=== PATIENT | female | born 1950 | race Caucasian/White ===

== ENCOUNTER 2018-09-20 12:00 | Emergency (ER) | payer OTHER ==
--- OUTSIDE RECORDS SUMMARY | 2018-09-20 12:02 | XMS REPORT ---
:1950 Author Organization [facility] Address [address] [place] [address] Care Team Providers Name Role Phone KENNETH WEBSTER Unavailable Unavailable ARMIN LOW ABA Unavailable Unavailable Problems This patient has no known problems. Allergies, Adverse Reactions, Alerts This patient has no known allergies or adverse reactions. Medications This patient has no known medications. Results Test Description Test Time Test Comments Text Results Atomic Results Result Comments MR, ABDOMEN, 2018-04-07 Referring: FINAL REPORT PATIENT ID: WITH 13:10:00 Orville Pickett [id number] TECHNIQUE: MRI of the Abdominal Vessels abdomen WITHOUT and WITH intravenous contrast. INDICATION: 67-year-old woman with liver masses. COMPARISON: Abdomen MRIs 06/10/2017 and 01/27/2017. FINDINGS: LOWER THORAX: Unchanged 1.2 cm cystic structure abutting the left atrium and right pulmonary veins. LIVER: No hepatic signal abnormality. Unchanged 2.2 cm cyst in segment ABDIAZIZ. Unchanged 1.5 cm progressively enhancing hemangioma in segment . 3.8 x 2.8 cm lesion in segment VII with areas of T1/T2 hypointense signal appears slightly decreased in size since 01/27/2017, when it measured 4.1 x 3.2 cm. This lesion continues to progressively enhance on postcontrast sequences. Persistent subcentimeter arterially enhancing focus in the hepatic dome with questionable corresponding T2 hyperintensity remains isointense to blood pool on subsequent postcontrast sequences, suggestive of a flash filling hemangioma.BILIARY: Prior cholecystectomy. No biliary ductal dilatation or filling defect.SPLEEN: No splenomegaly.PANCREAS: No focal masses or ductal dilatation. ADRENALS: No adrenal nodules.KIDNEYS/URETERS: No hydronephrosis or solid mass lesions. PERITONEUM/RETROPERITONEUM: No free fluid.LYMPH NODES: No lymphadenopathy.VESSELS: Unremarkable. GI TRACT: No distention or wall thickening. BONES AND SOFT TISSUES: Unremarkable. IMPRESSION:Slightly decreased size of the lesion in segment VII, suggestive of a benign lesion such as a sclerotic hemangioma. Unchanged hemangioma in segment and cyst in segment ABDIAZIZ. Unchanged cystic structure abutting the left atrium and right pulmonary veins, almost certainly a benign entity such as pericardial cyst. Signed: Santa Lee MDReport Verified Date/Time: 04/07/2018 13:10:38 Reading Location: [facility] C013Y CT Body Reading Room -CREATININE 2018-04-07 11:17:00 Test Item Value Reference Range Comments POC-CREATININE (BEAKER) (test 0.6 mg/dL 0.6-1.3 TESTED AT [facility] 2457 acix=3724) [facility] [address] POC-EGFR (BEAKER) (test 100 mL/min/1.73M2 qrqz=4206) MR, ABDOMEN, [id number] 14:38:00Referring: Dr. Orville Barkley Due April 2018 Reason for Exam:->liver lesions. Please re-evaluateFINAL REPORT MR of the abdomen dated June 04, 2017 COMPARISON: June 26, 2016 Comment: Multiplanar T1 and T2-weighted uterus of the abdomen, postcontrast axial and coronalT1-weighted images of the abdomen were obtained. Liver and spleen are normal in size. The margin of the liver is not irregular. No MR evidence of cirrhosis is present. A 1.0 x 1.7 cm hemangioma is seenin the segment 6 of the liver. A 1.2 x 2.2 cm cyst is seen in the segment 4A of the liver. A stable 2.4 x 3.4 cm heterogeneous appearing lesion is seen in the segment 7 of the liver. This lesion has heterogeneous signal intensity T1 and T2 weighted images with a normal peripheral postcontrast enhancement. Signal voids are seen in the peripheral of this lesion suggestive of calcifications. This lesionis compatible with patient's known history of sclerosing hemangioma. Gallbladder is surgically absent. No biliary dilatation is seen. The splenic, superior mesenteric, portal, and hepatic veins are patent. Main portal vein measures 1.2 cm in size. Pancreas and adrenals are unremarkable. Both kidneys are normal in size and functioning. No mass, adenopathy, or ascites is seen in the abdomen. IMPRESSION:1. Stable interval examination of the abdomen.2. Cyst in the segment 4A of the liver and small hemangioma in the segment 6 of the liver.3. 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 Signed: Lee Resendiz MDReport Verified Date/Time: 06/10/2017 14:38:42 Reading Location: [place] [address]Y CT Body Reading Room [id number] 11:12:00 Test Item Value Reference Range Comments POC-CREATININE (BEAKER) 0.7 mg/dL 0.6-1.3 TESTED AT [place] [address] (test ukkj=2041) [facility] [address] POC-EGFR (BEAKER) (test 84 mL/min/1.73M2 vhxs=7064) CARCINOEMBRYONIC ANTIGEN (CEA)2017-01-27 16:22:00 Test Item Value Reference Range Comments CARCINOEMBRYONIC ANTIGEN (BEAKER) (test vjsl=275) < ng/mL 0.0-5.0 [id number] 16:18:00 Test Item Value Reference Range Comments FERRITIN (BEAKER) (test hdhd=371) 194 ng/mL 5-275 Effective 08/02/2014: Reference Range ChangeNew: Male 5-275 Previous: Male 22-322 Female 5-275 Female 10-291ALPHA FETOPROTEIN (AFP), TUMOR [id number] 16:10:00 Test Item Value Reference Range Comments ALPHA-FETOPROTEIN (BEAKER) (test dakh=7986) 8.7 ng/mL <10.0 Effective 08/02/2014: Reference Range ChangeNew: <10.0 Previous: 0.0- 8.0HEPATITIS A ANTIBODY, [id number] 16:10:00 Test Item Value Reference Range Comments HEPATITIS A IGM ANTIBODY (BEAKER) (test Nonreactive Nonreactive bnbe=174) HEPATITIS B CORE ANTIBODY, [id number] 16:10:00 Test Item Value Reference Range Comments HEPATITIS B CORE TOTAL ANTIBODY (BEAKER) (test Nonreactive Nonreactive lnip=146) HEPATITIS A ANTIBODY, [id number] 16:10:00 Test Item Value Reference Range Comments HEPATITIS A IGG ANTIBODY (BEAKER) (test Nonreactive Nonreactive eoam=8674) HEPATITIS B SURFACE [id number] 16:08:00 Test Item Value Reference Range Comments HEPATITIS B SURFACE ANTIBODY (BEAKER) (test < mIU/mL <8.0 rdbu=534) HEPATITIS B SURFACE [id number] 16:07:00 Test Item Value Reference Range Comments HEPATITIS B SURFACE ANTIGEN (2) (BEAKER) (test Nonreactive Nonreactive tmeu=2815) HEPATITIS C [id number] 16:07:00 Test Item Value Reference Range Comments HEPATITIS C ANTIBODY (BEAKER) (test ulje=652) Nonreactive Nonreactive HEPATIC FUNCTION [id number] 15:48:00 Test Item Value Reference Range Comments TOTAL PROTEIN (BEAKER) (test supj=797) 7.2 gm/dL 6.0-8.3 ALBUMIN (BEAKER) (test stuq=9889) 4.2 g/dL 3.5-5.0 BILIRUBIN TOTAL (BEAKER) (test oxlj=203) 0.7 mg/dL 0.2-1.2 BILIRUBIN DIRECT (BEAKER) (test bsst=692) 0.3 mg/dL 0.1-0.5 ALKALINE PHOSPHATASE (BEAKER) (test uigf=988) 72 U/L 40-150 AST (SGOT) (BEAKER) (test hsbr=636) 15 U/L 5-34 ALT (SGPT) (BEAKER) (test rfgm=307) 11 U/L 6-55 BASIC METABOLIC [id number] 15:48:00 Test Item Value Reference Range Comments SODIUM (BEAKER) (test 137 meq/L 136-145 iyxb=774) POTASSIUM (BEAKER) (test 3.6 meq/L 3.5-5.1 ugmz=661) CHLORIDE (BEAKER) (test 101 meq/L 98-107 dyyz=087) CO2 (BEAKER) (test 27 meq/L 22-29 gpta=928) BLOOD UREA NITROGEN 19 mg/dL 7-21 (BEAKER) (test jbse=272) CREATININE (BEAKER) (test 0.72 mg/dL 0.57-1.25 ixnb=642) GLUCOSE RANDOM (BEAKER) 101 mg/dL 70-105 (test ngjm=706) CALCIUM (BEAKER) (test 9.6 mg/dL 8.4-10.2 jbur=407) EGFR (BEAKER) (test 81 mL/min/1.73 sq m ESTIMATED GFR IS NOT kjhg=8056) ACCURATE CREATININE CLEARANCE IN PREDICTING GLOMERULAR FILTRATION RATE. ESTIMATED GFR IS NOT APPLICABLE FOR DIALYSIS PATIENTS. IRON, TIBC, % SAT. (WITHOUT FERRITIN)2017-01-27 15:43:00 Test Item Value Reference Range Comments IRON (BEAKER) (test ntpr=063) 98 ug/dL 40-160 TOTAL IRON BINDING CAPACITY (BEAKER) (test 304 ug/dL 250-450 jgfk=242) IRON % SATURATION (2) (BEAKER) (test psee=5293) 32 % 20-55 PROTHROMBIN [id number] 15:30:00 Test Item Value Reference Range Comments PROTIME (BEAKER) (test qvlp=731) 13.2 seconds 11.7-14.7 INR (BEAKER) (test usoo=450) 1.0 <=5.9 RECOMMENDED COUMADIN/WARFARIN INR THERAPY RANGESSTANDARD DOSE: 2.0 - 3.0 Includes: PROPHYLAXIS forvenous thrombosis, systemic embolization; TREATMENT for venous thrombosis and/or pulmonary embolus.HIGH RISK: Target INR is 2.5-3.5 for patients with mechanical heart valves.CBC W/PLT COUNT & AUTO [id number] 15:19:00 Test Item Value Reference Range Comments WHITE BLOOD CELL COUNT (BEAKER) (test ehls=310) 7.8 K/ L 4.0-10.0 RED BLOOD CELL COUNT (BEAKER) (test kkzz=637) 4.20 M/ L 4.00-5.00 HEMOGLOBIN (BEAKER) (test yswb=657) 13.8 GM/DL 12.0-15.0 HEMATOCRIT (BEAKER) (test gzpo=094) 41.3 % 36.0-45.0 MEAN CORPUSCULAR VOLUME (BEAKER) (test avti=902) 98.3 fL 82.0-99.0 MEAN CORPUSCULAR HEMOGLOBIN (BEAKER) (test 33.0 pg 27.0-33.0 gkbo=350) MEAN CORPUSCULAR HEMOGLOBIN CONC (BEAKER) (test 33.5 GM/DL 32.0-36.0 quef=192) RED CELL DISTRIBUTION WIDTH (BEAKER) (test 11.5 % 10.3-14.2 wwqy=472) PLATELET COUNT (BEAKER) (test eccz=812) 215 K/CU MM 150-430 MEAN PLATELET VOLUME (BEAKER) (test nsvw=755) 8.3 fL 6.5-10.5 NUCLEATED RED BLOOD CELLS (BEAKER) (test 0 /100 WBC 0-0 uity=914) NEUTROPHILS RELATIVE PERCENT (BEAKER) (test 55 % fgmw=371) LYMPHOCYTES RELATIVE PERCENT (BEAKER) (test 35 % vfvo=247) MONOCYTES RELATIVE PERCENT (BEAKER) (test 6 % yolz=119) EOSINOPHILS RELATIVE PERCENT (BEAKER) (test 2 % cmeu=875) BASOPHILS RELATIVE PERCENT (BEAKER) (test 1 % slnq=051) NEUTROPHILS ABSOLUTE COUNT (BEAKER) (test 4.31 K/ L 1.80-8.00 sefp=316) LYMPHOCYTES ABSOLUTE COUNT (BEAKER) (test 2.75 K/ L 1.48-4.50 ogaq=981) MONOCYTES ABSOLUTE COUNT (BEAKER) (test 0.50 K/ L 0.00-1.30 hkdq=842) EOSINOPHILS ABSOLUTE COUNT (BEAKER) (test 0.16 K/ L 0.00-0.50 mkmf=465) BASOPHILS ABSOLUTE COUNT (BEAKER) (test 0.07 K/ L 0.00-0.20 qsmx=581) [id number] 12:40:00 Test Item Value Reference Range Comments POC-CREATININE (BEAKER) 0.7 mg/dL 0.6-1.3 TESTED AT [facility] [address] (test nigz=5700) [facility] [address] POC-EGFR (BEAKER) (test 84 mL/min/1.73M2 axrh=2548)
--- OUTSIDE RECORDS SUMMARY | 2018-09-20 12:02 | XMS REPORT | Clinical Summary ---
:1950 Author Organization [facility] Address [address] [place] [address] Care Team Providers Name Role Phone Rubia Luis Ceron Primary Care Provider Allergies No Known Allergies Medications Medication Sig Dispensed Refills Start Date End Date Status ascorbic acid (VITAMIN Take 1,000 mg by 0 Active C) 1000 MG tablet mouth daily. zolpidem (AMBIEN) 10 mg Take 10 mg by 0 Active tablet mouth nightly. losartan-hydrochlorothi Take 1 tablet by 0 Active azide (HYZAAR) 100-25 mouth daily. mg per tablet carvedilol (COREG) 25 Take 25 mg by 0 Active MG tablet mouth 2 (two) times daily with breakfast and dinner. levothyroxine Take 50 mcg by 0 Active (SYNTHROID) 50 MCG mouth Every tablet morning on an empty stomach. desvenlafaxine Take 50 mg by 0 Active succinate (PRISTIQ) 50 mouth daily. MG 24 hr tablet amLODIPine (NORVASC) 10 Take 10 mg by 0 Active MG tablet mouth daily. gabapentin (NEURONTIN) Take 100 mg by 0 Active 100 MG capsule mouth 3 (three) times daily. Active Problems Problem Noted Date Immunity status testing 01/27/2017 Last Assessment & Plan: All patients with chronic liver disease, regardless of etiology, should be immunized to prevent hepatitis A and hepatitis B if they are not already immune. We will test for immunity to both viruses - va ccine recommendations will follow. Liver masses 01/27/2017 Last Assessment & Plan: She was diagnosed with indeterminate liver lesions (largest measuring 5 cm in segment 7) in July 2016 following work up for abdominal pain. A liver biopsy of segment 7 lesion in June 2016 was neg ative for malignancy. Follow up abdominal US in November 2016 reveals a 2.1 cm cyst in anterior right lobe and a poorly seen hypoechoic area in the posterior right lobe measuring 3.2 cm that may correspond to the larger mass. Outside MRI reviewed in clinic today, imaging characteristics are ominous. Updated labs today evaluating hepatic function along with tumor markers and viral serologies. Updated abdominal MRI today to re-evaluate hepatic lesions. Updated CT chest to rule out malignancy. All outside imaging will be reviewed at radiology conference. Based on above results, additional recommendations will be made regarding need for surgical intervention. Abnormal findings on diagnostic imaging of liver 01/27/2017 Encounters Date Type Specialty Care Team Description 04/10/2018 Telephone Transplant Angela Chau Results Hepatology PARVEEN Meyer 04/07/2018 Hospital Encounter Radiology Leif Vazquez Liver masses 04/03/2018 Outside Orders Central Scheduling System, Provider Not In 01/15/2018 Orders Only Transplant Angela Chau Liver masses Hepatology PARVEEN Meyer (Primary Dx) after 09/19/2017 Family History Medical History Relation Name Comments Brain cancer Father Heart disease Mother Relation Name Status Comments Father Mother Social History Tobacco Use Types Packs/Day Years Used Date Never Smoker Smokeless Tobacco: Never Used Alcohol Use Drinks/Week oz/Week Comments Yes 1 Cans of beer 0.6 Social 1-2 weeks Sex Assigned at Date Recorded Not on file Job Start Date Occupation Industry Not on file Not on file Not on file Travel History Travel Start Travel End No recent travel history available. Last Filed Vital Signs Not on file Plan of Treatment Health Maintenance Due Date Last Done Comments INFLUENZA VACCINE 06/15/2018 Procedures Procedure Name Priority Date/Time Associated Diagnosis Comments MR ABDOMEN Routine 04/07/2018 10:35 AM Liver masses Results for this WITH/WITHOUT IV CDT procedure are in CONTRAST the results section. POCT-CREATININE Routine 04/07/2018 9:49 AM Results for this CDT procedure are in the results section. after 09/19/2017 Results MRI abdomen with and without contrast (04/07/2018 10:35 AM CDT) Narrative Performed At FINAL REPORT Stop Being Watched TECHNIQUE: MRI of the abdomen WITHOUT and WITH intravenous contrast. INDICATION: [...] postcontrast sequences, suggestive of a flash filling hemangioma. BILIARY: Prior cholecystectomy. No biliary ductal dilatation or filling defect. SPLEEN: No splenomegaly. PANCREAS: No focal masses or ductal dilatation. ADRENALS: No adrenal nodules. KIDNEYS/URETERS: No hydronephrosis or solid mass lesions. PERITONEUM/RETROPERITONEUM: No free fluid. LYMPH NODES: No lymphadenopathy. VESSELS: Unremarkable. GI TRACT: No distention or wall thickening. BONES AND SOFT TISSUES: Unremarkable. IMPRESSION: Slightly decreased size of the lesion in segment VII, suggestive of a benign lesion such as a sclerotic hemangioma. Unchanged hemangioma in segment and cyst in segment ABDIAZIZ. Unchanged cystic structure abutting the left atrium and right pulmonary veins, almost certainly a benign entity such as pericardial cyst. Signed: Santa Lee MD Report Verified Date/Time:04/07/2018 13:10:38 Reading Location: [address] Body Reading Room Procedure Note Interface, External Ris In - 04/07/2018 1:12 PM CDT FINAL REPORT TECHNIQUE: MRI of the abdomen WITHOUT and WITH intravenous contrast. INDICATION: [...] postcontrast sequences, suggestive of a flash filling hemangioma. BILIARY: Prior cholecystectomy. No biliary ductal dilatation or filling defect. SPLEEN: No splenomegaly. PANCREAS: No focal masses or ductal dilatation. ADRENALS: No adrenal nodules. KIDNEYS/URETERS: No hydronephrosis or solid mass lesions. PERITONEUM/RETROPERITONEUM: No free fluid. LYMPH NODES: No lymphadenopathy. VESSELS: Unremarkable. GI TRACT: No distention or wall thickening. BONES AND SOFT TISSUES: Unremarkable. IMPRESSION: Slightly decreased size of the lesion in segment VII, suggestive of a benign lesion such as a sclerotic hemangioma. Unchanged hemangioma in segment and cyst in segment ABDIAZIZ. Unchanged cystic structure abutting the left atrium and right pulmonary veins, almost certainly a benign entity such as pericardial cyst. Signed: Santa Lee MD Report Verified Date/Time: 04/07/2018 13:10:38 Reading Location: [facility] C013Y CT Body Reading Room Performing Organization Address City/State/Zipcode Phone Number GE RIS POC-Creatinine (04/07/2018 9:49 AM CDT) POC-Creatinine 0.6Comment: TESTED AT 0.6 - 1.3 mg/dL [facility] BSC-KG [facility] [address] POC-EGFR 100 mL/min/1.73M2 [facility] Specimen Blood Narrative Performed At Performing Organization Address City/State/Zipcode Phone Number [facility] [address] [place] [address] [phone] CENTER after 09/19/2017 Insurance Payer Benefit Plan / Group Subscriber ID Type Phone Address MEDICARE MEDICARE A B xxxxxxxxxx Medicare xxxxxxxxx Other Govt ([facility], [place], [facility], etc.) Advance Directives For more information, please contact:[place] [id number] [facility] [place], [place] [phone] Code Status Date Activated Date Inactivated Comments Full Code 07/12/2016 12:26 PM 07/16/2016 9:26 AM This code status was determined by: Patient
--- NOTE | 2018-09-20 13:40 | RAD REPORT ---
EXAM DESCRIPTION: RAD - Hip Right 2 View - 09/20/2018 1:05 pm CLINICAL HISTORY: fall;Pain COMPARISON: No comparisons FINDINGS: Mild osteoarthritic changes affect the right hip. No acute fracture or dislocation is seen . No radiographic evidence of AVN.
--- NOTE | 2018-09-20 13:41 | RAD REPORT ---
EXAM DESCRIPTION: RAD - Pelvis - 09/20/2018 1:05 pm CLINICAL HISTORY: PAIN Fall. COMPARISON: No comparisons FINDINGS: Cortical irregularity involving the superior and inferior pubic rami near the pubic symphy sis noted on the right is compatible with fracture. No dislocation evident.
[2018-09-20] MEDS ORDERED: HYDROCODONE/APAP 7.5/325 MG TAB ONE (13:49)
--- NOTE | 2018-09-20 14:18 | ER ---
Nurse's Notes [facility] Name: Celeste Rojas Age: 68 yrs Sex: Female : 1950 Arrival Date: 09/20/2018 Time: 12:05 Bed 25 Private MD: Luis Barkley V Diagnosis: Multiple fractures of pelvis with stable disruption of pelvic ring Presentation: 09/20 12:09 Presenting complaint: Patient states: fell out of her jeep on Friday, fell onto right iw side, still c/o pain to right hip with decreased ROM. Care prior to arrival: None. 12:09 Acuity: JESSICA 4 iw 12:09 Method Of Arrival: Ambulatory iw 12:10 Transition of care: patient was not received from another setting of care. Onset of iw symptoms was September 14, 2018. Risk Assessment: Do you want to hurt yourself or someone else? Patient reports no desire to harm self or others. Initial Sepsis Screen: Does the patient meet any 2 criteria? No. Patient's initial sepsis screen is negative. Does the patient have a suspected source of infection? No. Patient's initial sepsis screen is negative. Historical: - Allergies: 12:11 No Known Allergies; iw - PMHx: 12:11 Hypertension; Hypothyroidism; iw - PSHx: 12:11 Hysterectomy; foot; iw - Immunization history:: Adult Immunizations not up to date. - Social history:: Smoking status: Patient/guardian denies using tobacco. - Ebola Screening: : Patient negative for fever greater than or equal to 101.5 degrees Fahrenheit, and additional compatible Ebola Virus Disease symptoms Patient denies exposure to infectious person Patient denies travel to an Ebola-affected area in the 21 days before illness onset No symptoms or risks identified at this time. Screenin:33 Abuse screen: Denies threats or abuse. Nutritional screening: No deficits noted. tl3 Tuberculosis screening: No symptoms or risk factors identified. Fall Risk Fall in past 12 months (25 points). Assessment: 13:33 General: Appears uncomfortable, well groomed, well developed, well nourished, Behavior tl3 is calm, cooperative, appropriate for age. Pain: Complains of pain in right hip Pain currently is 5 out of 10 on a pain scale. at worst was 10 out of 10 on a pain scale. Neuro: No deficits noted. Level of Consciousness is awake, alert, obeys commands, Oriented to person, place, time, situation, Appropriate for age. Cardiovascular: Patient's skin is warm and dry. Respiratory: Airway is patent Respiratory effort is even, unlabored, Respiratory pattern is regular, symmetrical. GI: No deficits noted. No signs and/or symptoms were reported involving the gastrointestinal system. : No deficits noted. No signs and/or symptoms were reported regarding the genitourinary system. EENT: No deficits noted. No signs and/or symptoms were reported regarding the EENT system. Derm: No deficits noted. No signs and/or symptoms reported regarding the dermatologic system. Musculoskeletal: Reports pain in right hip since Friday, fell out of Jeep has been using ice/heat and Motrin for comfort, pain just not getting better. 14:29 Reassessment: Patient appears in no apparent distress at this time. No changes from tl3 previously documented assessment. Patient and/or family updated on plan of care and expected duration. Pain level reassessed. Patient is alert, oriented x 3, equal unlabored respirations, skin warm/dry/pink. Vital Signs: 12:11 BP 131 / 88; Pulse 74; Resp 16; Temp 97.6; Pulse Ox 100% on R/A; Weight 97.07 kg; iw Height 5 ft. 7 in. (170.18 cm); Pain 10/10; 13:11 BP 142 / 82; Pulse 69; Resp 16; Pulse Ox 98% on R/A; Pain 9/10; mt 14:29 BP 135 / 85; Pulse 65; Resp 18; Pulse Ox 100% on R/A; tl3 12:11 Body Mass Index 33.52 (97.07 kg, 170.18 cm) iw ED Course: 12:05 Patient arrived in ED. sb2 12:05 Luis Barkley MD is Private Physician. sb2 12:10 Triage completed. iw 12:11 Arm band placed on. iw 13:04 Hip Right 2 View XRAY In Process Unspecified. EDMS 13:04 Pelvis XRAY In Process Unspecified. EDMS 13:06 Jamaal Valenzuela PA is PHCP. jr8 13:07 Deep Potter MD is Attending Physician. jr8 13:20 Judith Alford RN is Primary Nurse. tl3 13:33 Patient has correct armband on for positive identification. Bed in low position. Call tl3 light in reach. Side rails up X 1. Adult w/ patient. Warm blanket given. Head of bed Elevated. 13:33 No provider procedures requiring assistance completed. Patient did not have IV access tl3 during this emergency room visit. 14:16 Tiburcio Eddy MD is Referral Physician. jr8 Administered Medications: 13:38 Drug: [place] (7.5 mg-325 mg) 1 tabs Route: PO; tl3 14:30 Follow up: Response: No adverse reaction; Pain is decreased tl3 Outcome: 14:17 Discharge ordered by . elma 14:29 Discharged to tl3 14:29 Discharged to home via wheelchair. 14:29 Condition: stable 14:29 Discharge instructions given to patient, family, Instructed on discharge instructions, follow up and referral plans. medication usage, Demonstrated understanding of instructions, follow-up care, medications, Prescriptions given X 2. 14:31 Patient left the ED. tl3 Signatures: Dispatcher [employer] EDMS Amira Reyes, RN RN Jamaal Valenzuela PA PA jr8 Jihan Joe mt, Sheri 2 Judith Alford, BRIDGET RN tl3 Corrections: (The following items were deleted from the chart) 13:12 13:11 BP 142 / 82; Pulse 69bpm; Resp 16bpm; Pulse Ox 98% RA; [facility]
--- NOTE | 2018-09-20 14:18 | EDPHYS ---
Physician Documentation [facility] Name: Celeste Rojas Age: 68 yrs Sex: Female : 1950 Arrival Date: 09/20/2018 Time: 12:05 Bed 25 Private MD: Luis Barkley V ED Physician Deep Potter HPI: 09/20 14:11 This 68 yrs old Female presents to ER via Ambulatory with complaints of Hip jr8 Injury. 14:11 The patient or guardian reports decreased range of motion, pain. that occurred jr8 outdoors, sustained from a fall, There is no obvious deformity, The patient is able to ambulate with assistance. The patient is able to bear partial body weight. There is no radiation of the patient's discomfort. The complaints affect the right hip region . Onset: The symptoms/episode began/occurred acutely, yesterday. Modifying factors: The symptoms are alleviated by nothing, the symptoms are aggravated by any movement, weight bearing. Associated signs and symptoms: Loss of consciousness: the patient experienced no loss of consciousness. Severity of symptoms: At their worst the symptoms were moderate, in the emergency department the symptoms are unchanged. The patient has not experienced similar symptoms in the past. The patient has not recently seen a physician. Fell out of [facility] [address] accidently causing her to land on right hip/buttock. Pain since incident. Historical: - Allergies: 12:11 No Known Allergies; iw - PMHx: 12:11 Hypertension; Hypothyroidism; iw - PSHx: 12:11 Hysterectomy; foot; iw - Immunization history:: Adult Immunizations not up to date. - Social history:: Smoking status: Patient/guardian denies using tobacco. - Ebola Screening: : Patient negative for fever greater than or equal to 101.5 degrees Fahrenheit, and additional compatible Ebola Virus Disease symptoms Patient denies exposure to infectious person Patient denies travel to an Ebola-affected area in the 21 days before illness onset No symptoms or risks identified at this time. ROS: 14:11 Eyes: Negative for injury, pain, redness, and discharge, ENT: Negative for injury, jr8 pain, and discharge, Neck: Negative for injury, pain, and swelling, Cardiovascular: Negative for chest pain, palpitations, and edema, Respiratory: Negative for shortness of breath, cough, wheezing, and pleuritic chest pain, Abdomen/GI: Negative for abdominal pain, nausea, vomiting, diarrhea, and constipation, Back: Negative for injury and pain, Skin: Negative for injury, rash, and discoloration, Neuro: Negative for headache, weakness, numbness, tingling, and seizure. 14:11 MS/extremity: Positive for decreased range of motion, pain, tenderness, of the right hip. Exam: 14:11 Eyes: Pupils equal round and reactive to light, extra-ocular motions intact. Lids and jr8 lashes normal. Conjunctiva and sclera are non-icteric and not injected. Cornea within normal limits. Periorbital areas with no swelling, redness, or edema. ENT: Nares patent. No nasal discharge, no septal abnormalities noted. Tympanic membranes are normal and external auditory canals are clear. Oropharynx with no redness, swelling, or masses, exudates, or evidence of obstruction, uvula midline. Mucous membranes moist. Neck: Trachea midline, no thyromegaly or masses palpated, and no cervical lymphadenopathy. Supple, full range of motion without nuchal rigidity, or vertebral point tenderness. No Meningismus. Cardiovascular: Regular rate and rhythm with a normal S1 and S2. No gallops, murmurs, or rubs. Normal PMI, no JVD. No pulse deficits. Respiratory: Lungs have equal breath sounds bilaterally, clear to auscultation and percussion. No rales, rhonchi or wheezes noted. No increased work of breathing, no retractions or nasal flaring. Abdomen/GI: Soft, non-tender, with normal bowel sounds. No distension or tympany. No guarding or rebound. No evidence of tenderness throughout. Back: No spinal tenderness. No costovertebral tenderness. Full range of motion. Skin: Warm, dry with normal turgor. Normal color with no rashes, no lesions, and no evidence of cellulitis. Neuro: Awake and alert, GCS 15, oriented to person, place, time, and situation. Cranial nerves II-XII grossly intact. Motor strength 5/5 in all extremities. Sensory grossly intact. Cerebellar exam normal. Normal gait. 14:11 Musculoskeletal/extremity: Extremities: grossly normal except: noted in the right hip: pain, tenderness, right lateral hip and inguinal region, ROM: full active range of motion, full passive range of motion, limited active range of motion due to pain, limited passive range of motion due to pain, Circulation is intact in all extremities. Sensation intact. Vital Signs: 12:11 BP 131 / 88; Pulse 74; Resp 16; Temp 97.6; Pulse Ox 100% on R/A; Weight 97.07 kg; iw Height 5 ft. 7 in. (170.18 cm); Pain 10/10; 13:11 BP 142 / 82; Pulse 69; Resp 16; Pulse Ox 98% on R/A; Pain 9/10; mt 14:29 BP 135 / 85; Pulse 65; Resp 18; Pulse Ox 100% on R/A; tl3 12:11 Body Mass Index 33.52 (97.07 kg, 170.18 cm) iw MDM: 13:07 Patient medically screened. jr8 14:11 Data reviewed: vital signs, nurses notes, radiologic studies, plain films, and as a jr8 result, I will discharge patient. Data interpreted: Pulse oximetry: on room air is 96 %. Interpretation: normal. Counseling: I had a detailed discussion with the patient and/or guardian regarding: the historical points, exam findings, and any diagnostic results supporting the discharge/admit diagnosis, radiology results, the need for outpatient follow up, a orthopedic surgeon, to return to the emergency department if symptoms worsen or persist or if there are any questions or concerns that arise at home. 09/20 12:13 Order name: Hip Right 2 View XRAY; Complete Time: 13:42 iw 09/20 13:00 Order name: Pelvis XRAY; Complete Time: 13:42 dm5 Administered Medications: 13:38 Drug: [place] (7.5 mg-325 mg) 1 tabs Route: PO; tl3 14:30 Follow up: Response: No adverse reaction; Pain is decreased tl3 Disposition: 09/21 07:06 Co-signature as Attending Physician, Deep Potter MD I agree with the assessment and haresh plan of care. Disposition: 09/20/18 14:17 Discharged to Home. Impression: Multiple fractures of pelvis with stable disruption of pelvic ring. - Condition is Stable. - Discharge Instructions: Simple Pelvic Fracture, Adult. - Prescriptions for Ibuprofen 800 mg Oral Tablet - take 1 tablet by ORAL route every 12 hours As needed take with food; 20 tablet. Tylenol- Codeine #3 300-30 mg Oral Tablet - take 2 tablet by ORAL route every 6 hours As needed; 30 tablet. - Medication Reconciliation Form, Thank You Letter, Antibiotic Education, Prescription Opioid Use form. - Follow up: Tiburcio Eddy MD; When: 2 - 3 days; Reason: Recheck today's complaints, Continuance of care, Re-evaluation by your physician. - Problem is new. - Symptoms have improved. Signatures: Dispatcher [employer] EDDeep Maldonado MD MD cha Williams, Irene, BRIDGET RN Jamaal Dias PA PA jr8 Judith Alford RN RN tl3 Corrections: (The following items were deleted from the chart) 09/20 14:31 14:17 09/20/2018 14:17 Discharged to Home. Impression: Multiple fractures of pelvis tl3 with stable disruption of pelvic ring. Condition is Stable. Forms are Medication Reconciliation Form, Thank You Letter, Antibiotic Education, Prescription Opioid Use. Follow up: Tiburcio Eddy; When: 2 - 3 days; Reason: Recheck today's complaints, Continuance of care, Re-evaluation by your physician. Problem is new. Symptoms have improved. jr8
== END 2018-09-20 14:31 | disposition home or self-care (01) ==
LOC: ER 12:00
DX: S32.810A Multiple fractures of pelvis with stable disruption of pelvic ring, initial encounter for closed fracture (principal); W17.89XA Other fall from one level to another, initial encounter
CPT/HCPCS: 72170; 99283

== ENCOUNTER 2019-09-17 13:19 | Emergency (ER) | payer OTHER, SELFPAY ==
--- OUTSIDE RECORDS SUMMARY | 2019-09-17 13:22 | XMS REPORT ---
:1950 [facility] Address [address] [place] [address] Care Team Providers Name Role Phone MARILYNN LUNA ARTHURRISA Unavailable Unavailable KENNETH WEBSTER Unavailable Unavailable ARMIN LOW ABA Unavailable Unavailable Problems This patient has no known problems. Allergies, Adverse Reactions, Alerts This patient has no known allergies or adverse reactions. Medications This patient has no known medications. Results Test Description Test Time Test Comments Text Results Atomic Results Result Comments MR, ABDOMEN, WITH 2018-12-21 13:14:00 Referring: Dr. Jacinto FINAL REPORT PATIENT ID: Rubia [id number] INDICATION:History of liver masses. COMPARISON: April 07, 2018Sept2016May 2016 TECHNIQUE: MR of the Abdomen WITHOUT and WITH intravenous contrast. FINDINGS:Segment T2 mildly hyperintense lesion measures 1.3 x 0.6 cm, unchanged in size since March 2018 and decreased in size from 1.6 x 0.8 cm compared to January 2017. It demonstrates peripheral enhancement on portal venous and hepatic venous phase, and likely represents a hemangioma. Segment VII T2 hypointense lesion measures 2.3 x 2.3 cm, unchanged in size since March 2018 and decreased in size from 4.1 x 3.2 cm compared to January 2017. It demonstrates faint peripheral enhancement on all phases, probably a sclerosed hemangioma. Segment VIII enhancing lesion measures 1.2 x 0.7 cm, decreased in size from 1.7 x 1.7 cm in January 2017, probably a flash filling hemangioma. Segment VIa 2-cm cyst again noted. Overall the liver is normal in signal, contour, and size (no evidence of cirrhosis). Hepatic vasculature is patent. Patient is status post cholecystectomy. There is no biliary ductal dilatation. Pancreas, spleen, adrenal glands, kidneys, visualized bowel loops are unremarkable. IMPRESSION:Several liver lesions all of which most likely represent hemangiomas. Largest in segment VII and probably a sclerosed hemangioma. No new or malignant appearing liver lesion. Signed: Da Napier MDReport Verified Date/Time: 12/21/2018 13:14:08 Reading Location: [facility] B1 C013Y CT Body Reading Room -CREATININE 2018-12-21 11:04:00 Test Item Value Reference Range Comments POC-CREATININE (BEAKER) (test 0.7 mg/dL 0.6-1.3 TESTED [place] [facility] hnoz=7442) [facility] [address] POC-EGFR (BEAKER) (test 83 mL/min/1.73M2 upth=0727) MR, ABDOMEN, [id number] 13:10:00Referring: Dr. Orville Barkley Include Abdominal VesselsFINAL REPORT TECHNIQUE: MRI of the abdomen WITHOUT [...] cholecystectomy. No biliary ductal dilatation or filling defect.SPLEEN:No splenomegaly.PANCREAS: No focal masses or ductal dilatation. ADRENALS: No adrenal nodules.KIDNEYS/URETERS: No hydronephrosis or solid mass lesions. PERITONEUM/RETROPERITONEUM: No free fluid.LYMPH NODES: No lymphadenopathy.VESSELS: Unremarkable. GI TRACT: No distention or wall thickening. BONES AND SOFT TISSUES: Unremarkable. IMPRESSION:Slightly decreased size of the lesion in segment VII, suggestive of a benign lesion such as a sclerotic hemangioma. Unchanged hemangioma in segment and cyst insegment ABDIAZIZ. Unchanged cystic structure abutting the left atrium and right pulmonary veins, almost certainly a benign entity such as pericardial cyst. Signed: [place] MDReport Verified Date/Time: 04/07/2018 13:10:38 Reading Location: [facility] B1 C013Y CT Body Reading Room [id number] 11:17 :00 Test Item Value Reference Range Comments POC-CREATININE (BEAKER) 0.6 mg/dL 0.6-1.3 TESTED AT [facility] (test yfrd=7268) [facility] [address] POC-EGFR (BEAKER) (test 100 mL/min/1.73M2 trux=4700) MR, ABDOMEN, [id number] 14:38:00Referring: Dr. Orville Barkley Due April 2018 [...] MDReport Verified Date/Time: 06/10/2017 14:38:42 Reading Location: [place] [id number] CT Body Reading Room [id number] 11:12:00 Test Item Value Reference Range Comments POC-CREATININE (BEAKER) 0.7 mg/dL 0.6-1.3 TESTED AT [place] [address] (test xdgk=9620) [facility] [address] POC-EGFR (BEAKER) (test 84 mL/min/1.73M2 lehv=6433) CARCINOEMBRYONIC ANTIGEN (CEA)2017-01-27 16:22:00 Test Item Value Reference Range Comments CARCINOEMBRYONIC ANTIGEN (BEAKER) (test aqzx=306) < ng/mL 0.0-5.0 [id number] 16:18:00 Test Item Value Reference Range Comments FERRITIN (BEAKER) (test ekkp=071) 194 ng/mL 5-275 Effective 08/02/2014: Reference Range ChangeNew: Male 5-275 Previous: Male 22-322 Female 5-275 Female 10-291ALPHA FETOPROTEIN (AFP), TUMOR [id number] 16:10:00 Test Item Value Reference Range Comments ALPHA-FETOPROTEIN (BEAKER) (test dxzm=0239) 8.7 ng/mL <10.0 Effective 08/02/2014: Reference Range ChangeNew: <10.0 Previous: 0.0- 8.0HEPATITIS A ANTIBODY, [id number] 16:10:00 Test Item Value Reference Range Comments HEPATITIS A IGM ANTIBODY (BEAKER) (test Nonreactive Nonreactive uclg=992) HEPATITIS B CORE ANTIBODY, [id number] 16:10:00 Test Item Value Reference Range Comments HEPATITIS B CORE TOTAL ANTIBODY (BEAKER) (test Nonreactive Nonreactive ibqe=081) HEPATITIS A ANTIBODY, [id number] 16:10:00 Test Item Value Reference Range Comments HEPATITIS A IGG ANTIBODY (BEAKER) (test Nonreactive Nonreactive avtc=3086) HEPATITIS B SURFACE [id number] 16:08:00 Test Item Value Reference Range Comments HEPATITIS B SURFACE ANTIBODY (BEAKER) (test < mIU/mL <8.0 ponk=815) HEPATITIS B SURFACE [id number] 16:07:00 Test Item Value Reference Range Comments HEPATITIS B SURFACE ANTIGEN (2) (BEAKER) (test Nonreactive Nonreactive gtge=5985) HEPATITIS C [id number] 16:07:00 Test Item Value Reference Range Comments HEPATITIS C ANTIBODY (BEAKER) (test vtzh=336) Nonreactive Nonreactive HEPATIC FUNCTION [id number] 15:48:00 Test Item Value Reference Range Comments TOTAL PROTEIN (BEAKER) (test nfcm=796) 7.2 gm/dL 6.0-8.3 ALBUMIN (BEAKER) (test krup=7196) 4.2 g/dL 3.5-5.0 BILIRUBIN TOTAL (BEAKER) (test bfms=953) 0.7 mg/dL 0.2-1.2 BILIRUBIN DIRECT (BEAKER) (test iirw=215) 0.3 mg/dL 0.1-0.5 ALKALINE PHOSPHATASE (BEAKER) (test sffh=508) 72 U/L 40-150 AST (SGOT) (BEAKER) (test eggk=616) 15 U/L 5-34 ALT (SGPT) (BEAKER) (test ofzn=815) 11 U/L 6-55 BASIC METABOLIC [id number] 15:48:00 Test Item Value Reference Range Comments SODIUM (BEAKER) (test 137 meq/L 136-145 rayi=949) POTASSIUM (BEAKER) (test 3.6 meq/L 3.5-5.1 vzpw=823) CHLORIDE (BEAKER) (test 101 meq/L 98-107 vpii=438) CO2 (BEAKER) (test 27 meq/L 22-29 ddwh=536) BLOOD UREA NITROGEN 19 mg/dL 7-21 (BEAKER) (test xtsh=556) CREATININE (BEAKER) (test 0.72 mg/dL 0.57-1.25 cbay=930) GLUCOSE RANDOM (BEAKER) 101 mg/dL 70-105 (test ejjq=980) CALCIUM (BEAKER) (test 9.6 mg/dL 8.4-10.2 szqq=850) EGFR (BEAKER) (test 81 mL/min/1.73 sq m ESTIMATED GFR IS NOT xwqh=0709) ACCURATE CREATININE CLEARANCE IN PREDICTING GLOMERULAR FILTRATION RATE. ESTIMATED GFR IS NOT APPLICABLE FOR DIALYSIS PATIENTS. IRON, TIBC, % SAT. (WITHOUT FERRITIN)2017-01-27 15:43:00 Test Item Value Reference Range Comments IRON (BEAKER) (test wvbw=213) 98 ug/dL 40-160 TOTAL IRON BINDING CAPACITY (BEAKER) (test 304 ug/dL 250-450 yitz=645) IRON % SATURATION (2) (BEAKER) (test xndq=2985) 32 % 20-55 PROTHROMBIN [id number] 15:30:00 Test Item Value Reference Range Comments PROTIME (BEAKER) (test zgsy=590) 13.2 seconds 11.7-14.7 INR (BEAKER) (test whgd=797) 1.0 <=5.9 RECOMMENDED COUMADIN/WARFARIN INR THERAPY RANGESSTANDARD DOSE: 2.0 - 3.0 Includes: PROPHYLAXIS forvenous thrombosis, systemic embolization; TREATMENT for venous thrombosis and/or pulmonary embolus.HIGH RISK: Target INR is 2.5-3.5 for patients with mechanical heart valves.CBC W/PLT COUNT & AUTO [id number] 15:19:00 Test Item Value Reference Range Comments WHITE BLOOD CELL COUNT (BEAKER) (test hrnp=848) 7.8 K/ L 4.0-10.0 RED BLOOD CELL COUNT (BEAKER) (test pfvy=560) 4.20 M/ L 4.00-5.00 HEMOGLOBIN (BEAKER) (test bgyn=858) 13.8 GM/DL 12.0-15.0 HEMATOCRIT (BEAKER) (test ftbm=202) 41.3 % 36.0-45.0 MEAN CORPUSCULAR VOLUME (BEAKER) (test xema=112) 98.3 fL 82.0-99.0 MEAN CORPUSCULAR HEMOGLOBIN (BEAKER) (test 33.0 pg 27.0-33.0 udpk=463) MEAN CORPUSCULAR HEMOGLOBIN CONC (BEAKER) (test 33.5 GM/DL 32.0-36.0 geiv=667) RED CELL DISTRIBUTION WIDTH (BEAKER) (test 11.5 % 10.3-14.2 qqye=479) PLATELET COUNT (BEAKER) (test qhwu=597) 215 K/CU MM 150-430 MEAN PLATELET VOLUME (BEAKER) (test eedl=598) 8.3 fL 6.5-10.5 NUCLEATED RED BLOOD CELLS (BEAKER) (test 0 /100 WBC 0-0 gpum=164) NEUTROPHILS RELATIVE PERCENT (BEAKER) (test 55 % aivi=291) LYMPHOCYTES RELATIVE PERCENT (BEAKER) (test 35 % rajg=018) MONOCYTES RELATIVE PERCENT (BEAKER) (test 6 % tuor=331) EOSINOPHILS RELATIVE PERCENT (BEAKER) (test 2 % oeyj=941) BASOPHILS RELATIVE PERCENT (BEAKER) (test 1 % awcq=882) NEUTROPHILS ABSOLUTE COUNT (BEAKER) (test 4.31 K/ L 1.80-8.00 yiyt=385) LYMPHOCYTES ABSOLUTE COUNT (BEAKER) (test 2.75 K/ L 1.48-4.50 ugap=517) MONOCYTES ABSOLUTE COUNT (BEAKER) (test 0.50 K/ L 0.00-1.30 qeot=468) EOSINOPHILS ABSOLUTE COUNT (BEAKER) (test 0.16 K/ L 0.00-0.50 gyas=214) BASOPHILS ABSOLUTE COUNT (BEAKER) (test 0.07 K/ L 0.00-0.20 lesh=187) [id number] 12:40:00 Test Item Value Reference Range Comments POC-CREATININE (BEAKER) 0.7 mg/dL 0.6-1.3 TESTED [place] [facility] [place] (test wlnq=5463) [facility] [address] POC-EGFR (BEAKER) (test 84 mL/min/1.73M2 peev=7854)
[2019-09-17] MEDS ORDERED: IBUPROFEN 400 MG TAB ONE (13:53)
[2019-09-17] MEDS ORDERED: HYDROCODONE/APAP 7.5/325 MG TAB ONE (14:26)
--- NOTE | 2019-09-17 14:30 | ER ---
Nurse's Notes [facility] Name: Celeste Rojas Age: 69 yrs Sex: Female : 1950 Arrival Date: 09/17/2019 Time: 13:22 Bed 12 Private MD: Luis Barkley V Diagnosis: Fracture of fifth metatarsal bone Presentation: 09/17 13:41 Presenting complaint: Patient states: R foot pain that began 3 days ago after "twisting ss it" while walking. Transition of care: patient was not received from another setting of care. Onset of symptoms was September 15, 2019. Risk Assessment: Do you want to hurt yourself or someone else? Patient reports no desire to harm self or others. Initial Sepsis Screen: Does the patient meet any 2 criteria? No. Patient's initial sepsis screen is negative. Does the patient have a suspected source of infection? No. Patient's initial sepsis screen is negative. Care prior to arrival: None. 13:41 Method Of Arrival: Ambulatory ss 13:41 Acuity: JESSICA 4 ss Historical: - Allergies: 13:43 No Known Allergies; ss - Home Meds: 13:43 carvedilol 25 mg oral tab 1 tab 2 times per day [Active]; Synthroid 75 mcg Oral tab 1 ss tab once daily [Active]; amlodipine 5 mg tab 1 tab once daily [Active]; Paxil 30 mg Oral tab 1 tab once daily [Active]; - PMHx: 13:43 Hypertension; Hypothyroidism; ss - PSHx: 13:43 Hysterectomy; foot; ss - Immunization history:: Adult Immunizations up to date. - Social history:: Smoking status: Patient/guardian denies using tobacco. - Ebola Screening: : Patient denies exposure to infectious person Patient denies travel to an Ebola-affected area in the 21 days before illness onset. Screenin:52 Abuse screen: Denies threats or abuse. Denies injuries from another. Nutritional ss screening: No deficits noted. Tuberculosis screening: Never had TB. Fall Risk None identified. Assessment: 13:54 General: Appears in no apparent distress. Behavior is calm, cooperative. Pain: iw Complains of pain in right foot. Neuro: Level of Consciousness is awake, alert, obeys commands, Oriented to person, place, time, situation, Moves all extremities. Respiratory: Respiratory effort is even, unlabored, Respiratory pattern is regular, symmetrical. Derm: Skin is intact. Musculoskeletal: Range of motion: limited in right ankle. Vital Signs: 13:40 BP 129 / 74; Pulse 70; Resp 16; Temp 98.1(TE); Pulse Ox 98% on R/A; Weight 95.25 kg; ss Height 5 ft. 7 in. (170.18 cm); Pain 6/10; 14:45 BP 124 / 76; Pulse 73; Resp 17; Pulse Ox 99% on R/A; rv 13:40 Body Mass Index 32.89 (95.25 kg, 170.18 cm) ED Course: 13:22 Patient arrived in ED. mr 13:22 Luis Barkley MD is Private Physician. mr 13:23 Quan Yao FNP-C [facility]. la1 13:23 Arley Bermudez MD is Attending Physician. la1 13:40 Arm band placed on right wrist. ss 13:41 Triage completed. ss 13:49 Amira Reyes RN is Primary Nurse. iw 13:52 Patient has correct armband on for positive identification. Bed in low position. Call ss light in reach. 13:55 No provider procedures requiring assistance completed. Patient did not have IV access iw during this emergency room visit. 14:16 Foot Right 3 View XRAY In Process Unspecified. EDMS Administered Medications: 13:52 Drug: Motrin 800 mg Route: PO; ss 14:44 Follow up: Response: No adverse reaction rv 14:30 Drug: [place] (7.5 mg-325 mg) 1 tabs {Note: rass 0.} Route: PO; rv 14:43 Follow up: Response: Medication administered at discharge. rv Outcome: 14:29 Discharge ordered by . la1 14:44 Discharged to home via wheelchair, with family. rv 14:44 Condition: good 14:44 Discharge instructions given to patient, Instructed on discharge instructions, follow up and referral plans. crutch walking, Demonstrated understanding of instructions, follow-up care, crutch walking. 14:45 Patient left the ED. rv Signatures: Dispatcher [employer] EDMS Estella Portillo mr Amira Reyes RN RN iw Michaela Haro RN RN Quan Yao FNP-C PE MANAGER-Cla1 Ayden, Laz, RN RN rv
--- NOTE | 2019-09-17 14:31 | EDPHYS ---
Physician Documentation [facility] Name: Celeste Rojas Age: 69 yrs Sex: Female : 1950 Arrival Date: 09/17/2019 Time: 13:22 Bed 12 Private MD: Luis Barkley V ED Physician Arley Bermudez HPI: 09/17 14:24 This 69 yrs old Female presents to ER via Ambulatory with complaints of Ankle la1 Injury. 14:24 The complaints affect the right ankle. Onset: The symptoms/episode began/occurred 3 la1 day(s) ago. Context: The mechanism of injury involved inversion of the affected ankle. The patient can partially bear weight on the affected extremity. the patient is able to ambulate. Associated signs and symptoms: Pertinent negatives: calf tenderness, fever, nausea, numbness, rash, swelling, tingling, vomiting, warmth, weakness. Severity of symptoms: At their worst the symptoms were moderate. The patient has not experienced similar symptoms in the past. Pt reports a mechanical fall 3 days ago, now having right lateral foot pain. Historical: - Allergies: 13:43 No Known Allergies; ss - Home Meds: 13:43 carvedilol 25 mg oral tab 1 tab 2 times per day [Active]; Synthroid 75 mcg Oral tab 1 ss tab once daily [Active]; amlodipine 5 mg tab 1 tab once daily [Active]; Paxil 30 mg Oral tab 1 tab once daily [Active]; - PMHx: 13:43 Hypertension; Hypothyroidism; ss - PSHx: 13:43 Hysterectomy; foot; ss - Immunization history:: Adult Immunizations up to date. - Social history:: Smoking status: Patient/guardian denies using tobacco. - Ebola Screening: : Patient denies exposure to infectious person Patient denies travel to an Ebola-affected area in the 21 days before illness onset. ROS: 14:25 Constitutional: Negative for fever, chills, and weight loss, Eyes: Negative for injury, la1 pain, redness, and discharge, ENT: Negative for injury, pain, and discharge, Neck: Negative for injury, pain, and swelling, Cardiovascular: Negative for chest pain, palpitations, and edema, Respiratory: Negative for shortness of breath, cough, wheezing, and pleuritic chest pain, Abdomen/GI: Negative for abdominal pain, nausea, vomiting, diarrhea, and constipation, Back: Negative for injury and pain, : Negative for injury, bleeding, discharge, and swelling, Skin: Negative for injury, rash, and discoloration, Neuro: Negative for headache, weakness, numbness, tingling, and seizure. 14:25 MS/extremity: Positive for pain, of the lateral side of right foot. Exam: 14:26 Constitutional: This is a well developed, well nourished patient who is awake, alert, la1 and in no acute distress. Head/Face: Normocephalic, atraumatic. Eyes: Pupils equal round and reactive to light, extra-ocular motions intact. Periorbital areas with no swelling, redness, or edema. ENT: Mucous membranes moist. Chest/axilla: Normal chest wall appearance and motion. Nontender with no deformity. No lesions are appreciated. Cardiovascular: Regular rate and rhythm with a normal S1 and S2. No gallops, murmurs, or rubs. Normal PMI, no JVD. No pulse deficits. Respiratory: Lungs have equal breath sounds bilaterally, clear to auscultation No rales, rhonchi or wheezes noted. No increased work of breathing, no retractions or nasal flaring. Abdomen/GI: Soft, non-tender, with normal bowel sounds. No distension or tympany. No guarding or rebound. No evidence of tenderness throughout. MS/ Extremity: Pulses equal, no cyanosis. Neurovascular intact. Full, normal range of motion. 14:26 Musculoskeletal/extremity: Extremities: noted in the lateral side of right foot: pain, swelling, tenderness. Vital Signs: 13:40 BP 129 / 74; Pulse 70; Resp 16; Temp 98.1(TE); Pulse Ox 98% on R/A; Weight 95.25 kg; ss Height 5 ft. 7 in. (170.18 cm); Pain 6/10; 14:45 BP 124 / 76; Pulse 73; Resp 17; Pulse Ox 99% on R/A; rv 13:40 Body Mass Index 32.89 (95.25 kg, 170.18 cm) ss MDM: 13:46 Patient medically screened. la1 14:27 Data reviewed: vital signs, nurses notes, radiologic studies, I have discussed the la1 patient's presentation/case with the attending Emergency Department Physician; and as a result, I will discharge patient. Data interpreted: Pulse oximetry: on room air is 98 %. Interpretation: normal. Test interpretation: by ED physician or midlevel provider: plain radiologic studies. Counseling: I had a detailed discussion with the patient and/or guardian regarding: the historical points, exam findings, and any diagnostic results supporting the discharge/admit diagnosis, the presence of at least one elevated blood pressure reading (>120/80) during this emergency department visit, radiology results, the need for outpatient follow up, a orthopedic surgeon, to return to the emergency department if symptoms worsen or persist or if there are any questions or concerns that arise at home. Special discussion: Based on the history and exam findings, there is no indication for further emergent testing or inpatient evaluation. I discussed with the patient/guardian the need to see the orthopedic surgeon for further evaluation of the symptoms. I discussed with the patient/guardian the need to see the contracts specialist for further evaluation of the symptoms. 09/17 13:49 Order name: Foot Right 3 View XRAY la1 09/17 14:19 Order name: Ortho shoe; Complete Time: 14:21 la1 09/17 14:24 Order name: Crutches; Complete Time: 14:44 la1 09/17 14:24 Order name: Lalo Wrap; Complete Time: 14:44 la1 Administered Medications: 13:52 Drug: Motrin 800 mg Route: PO; ss 14:44 Follow up: Response: No adverse reaction rv 14:30 Drug: Tignall (7.5 mg-325 mg) 1 tabs {Note: rass 0.} Route: PO; rv 14:43 Follow up: Response: Medication administered at discharge. rv Disposition: 09/17/19 14:29 Discharged to Home. Impression: Fracture of fifth metatarsal bone. - Condition is Stable. - Discharge Instructions: Metatarsal Fracture, Foot Pain. - Medication Reconciliation Form, Thank You Letter form. - Follow up: Private Physician; When: 2 - 3 days; Reason: Recheck today's complaints, Re-evaluation by your physician. - Problem is new. - Symptoms have improved. Addendum: 09/20/2019 06:41 Co-signature as Attending Physician, Arley Bermudez MD I agree with the assessment and [facility] plan of care. Signatures: Dispatcher [employer] EDArley Cho MD MD kdr Smirch, Shelby, RN RN ss Quan Yao, CORPORATE QUALITY ENGINEER-C CORPORATE QUALITY ENGINEER-Cla1 Laz Hensley, RN RN rv Corrections: (The following items were deleted from the chart) 09/17 14:45 14:29 09/17/2019 14:29 Discharged to Home. Impression: Fracture of fifth metatarsal rv bone. Condition is Stable. Forms are Medication Reconciliation Form, Thank You Letter, Antibiotic Education, Prescription Opioid Use. Follow up: Private Physician; When: 2 - 3 days; Reason: Recheck today's complaints, Re-evaluation by your physician. Problem is new. Symptoms have improved. la1
--- NOTE | 2019-09-17 14:39 | RAD REPORT ---
EXAM DESCRIPTION: RAD - Foot Right 3 View - 09/17/2019 2:13 pm CLINICAL HISTORY: Right foot pain, twisting injury COMPARISON: None. FINDINGS: Oblique fracture is present through the distal shaft of the fifth metatarsal. No angulatio n deformity. There is very minimal 1-2 millimeter medial displacement of the distal fracture fragment . Fifth MTP joint is normal. Mild degenerative change at the first MTP joint. No other fracture conway es seen. There is questionable old fracture remodeling in the second-fourth proximal phalanges. No pl bailey spur. No air or foreign body in the soft tissues. IMPRESSION: Oblique fracture through the distal fifth metatarsal.
[2019-09-17 15:21] VITALS: TEMP 98.1
[2019-09-17 15:23] VITALS: BP 124/76; O2SAT 99
== END 2019-09-17 14:45 | disposition home or self-care (01) ==
LOC: ER 13:19
DX: S92.351A Displaced fracture of fifth metatarsal bone, right foot, initial encounter for closed fracture (principal); W19.XXXA Unspecified fall, initial encounter; Y93.9 Activity, unspecified; Y92.9 Unspecified place or not applicable; I10 Essential (primary) hypertension; E03.9 Hypothyroidism, unspecified
CPT/HCPCS: 99283

== ENCOUNTER 2021-08-28 10:29 | Observation (INO) | payer OTHER ==
[2021-08-24 12:05] LABS: Protime INR 0.96
[~2021-08-28 10:29] MED LIST: TRANEXAMIC ACID 1,000 MG in NA CHLORIDE 0.9% 50 ML IV ONE
[2021-08-28] MEDS ORDERED: CELECOXIB 100 MG CAPSULE ONE (11:14)
[2021-08-28] MEDS ORDERED: ACETAMINOPHEN 500 MG TAB ONE (11:14)
[2021-08-28] MEDS ORDERED: CEFAZOLIN/SWI 2gm 2 GM/20 ML SYR ONE (11:14)
[2021-08-28] MEDS ORDERED: GABAPENTIN 100 MG CAP ONE (11:14)
[2021-08-28] MEDS ORDERED: Ringers Lactate 1,000 ML IV ONE (11:14)
[2021-08-28] MEDS ORDERED: LIDOCAINE 1% MPF 5 ML VIAL ONE (11:29)
[2021-08-28] MEDS ORDERED: dexAMETHasone 10 MG/ML VIAL ONE (11:29)
[2021-08-28] MEDS ORDERED: NS 0.9% VIAL 10 ML ONE (11:29)
[2021-08-28] MEDS ORDERED: CELECOXIB 100 MG CAPSULE PO ONE (11:30)
[2021-08-28] MEDS ORDERED: ACETAMINOPHEN 500 MG TAB PO ONE (11:30)
[2021-08-28] MEDS ORDERED: GABAPENTIN 100 MG CAP PO ONE (11:30)
[2021-08-28] MEDS ORDERED: BUPIVACAINE 0.25% PF 10 ML VIAL ONE (11:34)
[2021-08-28] MEDS ORDERED: FENTANYL CITR 100 MCG/2 ML ONE ×2 (12:29→14:21)
[2021-08-28] MEDS ORDERED: MIDAZOLAM HCL 2 MG/2 ML INJ ONE (12:29)
[2021-08-28] MEDS ORDERED: HYDROMORPHONE HCL 1 MG/ML INJ ONE (13:10)
[2021-08-28] MEDS ORDERED: ONDANSETRON 4 MG/2 ML VIAL ONE (13:17)
[2021-08-28] MEDS ORDERED: LIDOCAINE 2% MPF 5 ML VIAL ONE (13:17)
[2021-08-28] MEDS ORDERED: propofoL 200 MG/20 ML VIAL IV ONE (13:17)
[2021-08-28] MEDS ORDERED: KETAMINE HCL 500 MG/5 ML VIAL ONE (13:17)
[2021-08-28] MEDS ORDERED: KETOROLAC 30 MG/ML INJ ONE (13:17)
[2021-08-28] MEDS ORDERED: dexAMETHasone 4 MG/ML VIAL ONE (13:19)
[2021-08-28] MEDS ORDERED: ONDANSETRON 4 MG/2 ML VIAL IV PRN (15:49)
[2021-08-28] MEDS ORDERED: DOCUSATE NA 100 MG CAP PO PRN (15:49)
[2021-08-28] MEDS ORDERED: MORPHINE 4 MG/ML SYR IV PRN (15:49)
--- NOTE | 2021-08-28 15:49 | P.BOP ---
Preoperative diagnosis: right knee arthritis Postoperative diagnosis: same Primary procedure: right total knee arthoplasty Estimated blood loss: 100ccs Anesthesia: General Complications: None Transferred to: Recovery Room Condition: Good
--- NOTE | 2021-08-28 16:27 | OP ---
Date of Procedure: 08/28/2021 Surgeon: Tiburcio Eddy MD Preoperative Diagnosis: Right knee degenerative joint disease. Postoperative Diagnosis: Right knee degenerative joint disease. Procedure: Right total knee arthroplasty using Biomet Vanguard System. Estimated Blood Loss: 100 cc. Complications: There were no complications. Pathology Specimens: No pathology specimens sent. Indication For Operation: Ms. Rojas is a 71-year-old female, who unfortunately is having severe pro blems with her knee. This persisted despite arthroscopy as well as other conservative measures inclu ding those that are available and continues to have problems with ADL and complaints of persistent ri ght knee pain. X-rays demonstrated severe arthritic changes of the medial compartment as well as tri compartmental arthritis. Risks, benefits, and alternatives to total knee arthroplasty have been disc ussed with her. She states she understands things as presented and wishes to proceed. Description Of Procedure: The patient was taken to the operating room and placed in the supine posit ion. General anesthesia was obtained by staff. Following this, a well-padded tourniquet was placed on superior right thigh. Right lower extremity was then prepped and draped in usual sterile fashion. Following this, the leg was elevated and exsanguinated. Knee was bent. Tourniquet was raised. Af ter this, a standard anterior incision was made carefully through skin and soft tissues. There was a significant amount of adipose tissue. Meticulous hemostasis was maintained using Bovie electrocaute ry. This leads down to the extensor mechanism and a standard medial parapatellar arthrotomy was then performed. Some fat pad was removed as well as the medial lateral menisci and anterior cruciate lig ament. The patella was everted. The knee was flexed and intramedullary guide was then placed withou t difficulty. This was followed by a distal cut. It was sized to a 62.5. It may be slightly small and there was a tiny anterior notch, which was primarily on the lateral aspect. This was gently brus hed down to avoid significant stress fracture. After this, the remainder of the femoral cuts were th en performed. The tibia was then cut in standard fashion using the tibial alignment guide. After th is was then trialed with a size 10 poly, this comes to full extension and appears to be well balanced both in flexion and extension. Attention was then turned to the patella. The patella was then macie pered and then cut and trialed with a size 8. The knee was then brought through range of motion and the patella glides excellently. After this, the box was placed in the femur as well as the tibia joanie ng punched and a bone plug was placed. The bony surfaces were then prepped for cementation and stand kvng cementation technique was performed of all 3 components using a trial polyethylene tibial block. Any unsupported cement was removed and the cement was allowed to harden. After this, it was then br ought through full range of motion and the patella seemed to glide excellently, however, it was felt that it might be a little loose. Therefore, decision was made to place a 12 trial poly, which appear ed to be doing fit a little better, definitely does not limit extension. After this was again irriga ryan and the final size 12 PS polyethylene then placed and locking bar was placed. After this was atomic spectroscopist iously irrigated and fascia closed in a watertight fashion using Ethibond. This was followed by clos ure of the skin using Vicryl followed by iva. The patient was then placed in a well-padded steri le dressing, awakened, and taken to the recovery room in good condition. /BILLY Voice ID: [id number] Report ID: [id number]
--- OUTSIDE RECORDS SUMMARY | 2021-08-28 16:32 | XMS REPORT | Continuity of Care Document ---
:1950 Author Organization [facility] t Address [address] [place] [address] Dr. Alexis. [address] [place] [address] Care Team Providers Name Role Phone ERENDIRA BARKLEY Primary Care Physician Unavailable David Attending Clinician Unavailable BRADLEY COATES DR [place] Attending Clinician Unavailable MILLY WEBSTER Attending Clinician Unavailable BRUNILDA LUNA Attending Clinician Unavailable ANGIE LOW Attending Clinician Unavailable David Admitting Clinician Unavailable BRADLEY COATES DR [place] Admitting Clinician Unavailable Payers Payer Name Policy Type Policy Number Effective Date Expiration Date S rashdi [employer] BENEFIT [id number] [facility] MEDICARE B-[place]: [id number] 2015 [employer] 00:00:00 MEDICARE A B [id number] 2015 00:00:00 [facility] [id number] 2013 00:00:00 Problems This patient has no known problems. Allergies, Adverse Reactions, Alerts Allergy Allergy Status Severity Reaction(s) Onset Inactive Treating Comm ents Source Name Type Date Date Clinician NO KNOWN Allergy Active [facility] Medications This patient has no known medications. Procedures This patient has no known procedures. Encounters Start End Encounter Admission Attending Care Care Encounter Source Date/Time Date/Time Type Type Clinicians Facility Department ID 2020-08-02 2020-08-02 Outpatient David [facility] [id number] [place] 02:40:00 02:40:00 [id number] 2020-04-13 2020-04-13 Outpatient Felecia COATES III, [facility] 175 [id number] [place] 13:11:00 23:59:00 YUD[facility] 2020-01-26 2020-01-26 Out[facility] [id number] [facility] 00:00:00 00:00:00 Results Test Description Test Time Test Comments Results Result Sour e Comments MR, ABDOMEN, WITH 2020-01-26 Referring: FINAL REPORT PATIENT 15:19:00 Orville Barkley ID: [id number] MRI Include of the abdomen with Abdominal and without contrast Vessels Clinical History: Liver lesion, > 1cm, US nondiagnostic Technique: Multiplanar and multisequence MR images of the abdomen are obtained before and after intravenous contrast administration. Contrast is administered to evaluate neoplasm and vasculature. Comparison: December 21, 2018 and April 07, 2018, June 10, 2017 Discussion: Liver is not cirrhotic in morphology. Again seen is a 2.1 cm cyst in segment 4. There is a small subcapsular progressively enhancing hemangioma in segment 6, which is stable. A tiny hypervascular focus at the right hepatic dome is also unchanged, possibly a flash filling hemangioma. In segment 7, there is a heterogeneously T2 hyperintense lesion with mild rim enhancement, measuring 2.4 x 1.9 x 3.7 cm; it is also stable. No new liver mass is identified. There is no biliary ductal dilatation, gallbladder is absent. Hepatic vasculature is patent. The main portal vein measures 12 mm. The spleen, pancreas, adrenal glands are normal. Kidneys demonstrate no mass, or hydronephrosis. There is no ascites, or lymphadenopathy. Normal marrow signal. Visualized bowel is unremarkable. Impression: Stable liver findings. No new lesion is identified. Signed: Hai Dye Verified Date/Time: 01/26/2020 15:19:03 Reading Location: [facility] C013X Ortho Consult Reading Room -CREATININE 2020-01-26 13:19:00 Test Item Value Reference Range Interpretation Comme nts POC-CREATININE (BEAKER) 0.7 mg/dL 0.6-1.3 : TE STED AT [facility]- 2457 S (test code = 1859) [facility] [id number]: Carpet Inspector/Techni lawrence ID = [id number] for Jenn Magaña POC-EGFR (ROBERT) (test 83 mL/min/1.73M2 code = 1860) MR, ABDOMEN, [id number] 13:14:00Referring: Dr. Orville Pacheco REPORT INDICATION:History of liver masses. COMPARISON: April 07, 2018Sept [id number] TECHNIQUE: MR of the Abdomen WITHOUT and WITH intravenous contrast. FINDINGS:Segment T2 mildly hyperintense lesion measures 1.3 x 0.6 cm, unchanged in size since March 2018and decreased in size from 1.6 x 0.8 cm compared to January 2017. It demonstrates peripheral enhancementon portal venous and hepatic venous phase, and likely represents a hemangioma. Segment VII T2 hypointense lesion measures 2.3 x 2.3 cm, unchanged in size since March 2018 and decreased in size from 4.1 x 3.2 cm compared to January 2017. It demonstrates faint peripheral enhancement on all phases, probably asclerosed hemangioma. Segment VIII enhancing lesion measures 1.2 [...] new or malignant appearing liver lesion. Signed: Seymour Terrazas MDReport Verified Date/Time: 12/21/2018 13:14:08 Reading Location: [facility] B1 C013Y CT Body Reading Room -[id number] 11:04:00 Test Item Value Reference Range Interpretation Comments POC-CREATININE 0.7 mg/dL 0.6-1.3 TESTED AT [facility] ([facility]) (test 1027 [facility] code = 1859) [facility] 7703 0 POC-EGFR 83 mL/min/1.73M2 ([facility]) (test code = 1860) MR, ABDOMEN, [id number] 13:10:00Referring: Dr. Orville Barkley Include Abdominal VesselsFINAL [...] entity such as pericardial cyst. Signed: Santa Katz MDReport Verified Date/Time: 04/07/2018 13:10:38 Reading Location: [facility] C013Y CT Body Reading Room [id number] 11:17:00 Test Item Value Reference Range Interpretation Comments POC-CREATININE 0.6 mg/dL 0.6-1.3 [facility] (test 2457 [facility] code = 1859) [facility] 7703 0 POC-EGFR 100 mL/min/1.73M2 (ROBERT) (test code = 1860) MR, ABDOMEN, [id number] 14:38:00Referring: Dr. Orville Barkley Due April 2018 [...] Pancreas and adrenals are unremarkable. Both kidneys ar e normal in size and functioning. No mass, adenopathy, or ascites is seen in the abdomen. IMPRESSION:1. Stable interval examination of the abdomen.2. Cyst in the segment 4A of the liver and small hemangioma in the segment 6 of the liver.3. 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 Signed: Lee Resendizeport Verified Date/Time: 06/10/2017 14:38:42 Reading Location: [facility] C013Y CT Body Reading Room [id number] 11:12:00 Test Item Value Reference Range Interpretation Comments POC-CREATININE 0.7 mg/dL 0.6-1.3 TESTED AT [facility] MC-KG (BEAKER) (test 2457 [facility] code = 1859) [place] 7703 0 POC-EGFR 84 mL/min/1.73M2 (BEAKER) (test code = 1860) CARCINOEMBRYONIC ANTIGEN (CEA)2017-01-27 16:22:00 Test Item Value Reference Range Interpretation Comments CARCINOEMBRYONIC ANTIGEN (BEAKER) < ng/mL 0.0-5.0 (test code = 685) [id number] 16:18:00 Test Item Value Reference Range Interpretation Comments FERRITIN (BEAKER) (test code = 361) 194 ng/mL 5-275 Effective 08/02/2014: Reference Range ChangeNew: Male 5-275 Previous: Male 22-322 Female 5-275 Female 10-291ALPHA FETOPROTEIN (AFP), TUMOR [id number] 16:10:00 Test Item Value Reference Range Interpretation Comments ALPHA-FETOPROTEIN (BEAKER) (test 8.7 ng/mL <10.0 code = 1094) Effective 08/02/2014: Reference Range ChangeNew: <10.0 Previous: 0.0-8.0 HEPATITIS A ANTIBODY, [id number] 16:10:00 Test Item Value Reference Range Interpretation Comments HEPATITIS A IGM ANTIBODY (BEAKER) Nonreactive Nonreactive (test code = 498) HEPATITIS B CORE ANTIBODY, [id number] 16:10:00 Test Item Value Reference Range Interpretation Comments HEPATITIS B CORE TOTAL ANTIBODY Nonreactive Nonreactive (BEAKER) (test code = 497) HEPATITIS A ANTIBODY, [id number] 16:10:00 Test Item Value Reference Range Interpretation Comments HEPATITIS A IGG ANTIBODY (BEAKER) Nonreactive Nonreactive (test code = 2797) HEPATITIS B SURFACE [id number] 16:08:00 Test Item Value Reference Range Interpretation Comments HEPATITIS B SURFACE ANTIBODY < mIU/mL <8.0 (BEAKER) (test code = 647) HEPATITIS B SURFACE [id number] 16:07:00 Test Item Value Reference Range Interpretation Comments HEPATITIS B SURFACE ANTIGEN (2) Nonreactive Nonreactive (BEAKER) (test code = 2585) HEPATITIS C [id number] 16:07:00 Test Item Value Reference Range Interpretation Comments HEPATITIS C ANTIBODY (BEAKER) Nonreactive Nonreactive (test code = 367) HEPATIC FUNCTION [id number] 15:48:00 Test Item Value Reference Range Interpretation Comments TOTAL PROTEIN (BEAKER) (test code = 7.2 gm/dL 6.0-8.3 770) ALBUMIN (BEAKER) (test code = 1145) 4.2 g/dL 3.5-5.0 BILIRUBIN TOTAL (BEAKER) (test code 0.7 mg/dL 0.2-1.2 = 377) BILIRUBIN DIRECT (BEAKER) (test 0.3 mg/dL 0.1-0.5 code = 706) ALKALINE PHOSPHATASE (BEAKER) (test 72 U/L 40-150 code = 346) AST (SGOT) (BEAKER) (test code = 15 U/L 5-34 353) ALT (SGPT) (BEAKER) (test code = 11 U/L 6-55 347) BASIC METABOLIC [id number] 15:48:00 Test Item Value Reference Range Interpretation Comments SODIUM (BEAKER) 137 meq/L 136-145 (test code = 381) POTASSIUM (BEAKER) 3.6 meq/L 3.5-5.1 (test code = 379) CHLORIDE (BEAKER) 101 meq/L 98-107 (test code = 382) CO2 (BEAKER) (test 27 meq/L 22-29 code = 355) BLOOD UREA NITROGEN 19 mg/dL 7-21 (BEAKER) (test code = 354) CREATININE (BEAKER) 0.72 mg/dL 0.57-1.25 (test code = 358) GLUCOSE RANDOM 101 mg/dL 70-105 (BEAKER) (test code = 652) CALCIUM (BEAKER) 9.6 mg/dL 8.4-10.2 (test code = 697) EGFR (BEAKER) (test 81 mL/min/1.73 ESTIMA KAITY GFR IS code = 1092) sq m NOT ACCURATE CREATININE CLEARANCE IN PREDICTING GLOMERULAR FILTRATION RATE . ESTIMATED GFR I S NOT APPLICABLE FOR DIALYSIS PATIEN TS. IRON, TIBC, % SAT. (WITHOUT FERRITIN)2017-01-27 15:43:00 Test Item Value Reference Range Interpretation Comments IRON (BEAKER) (test code = 547) 98 ug/dL 40-160 TOTAL IRON BINDING CAPACITY 304 ug/dL 250-450 (BEAKER) (test code = 769) IRON % SATURATION (2) (BEAKER) 32 % 20-55 (test code = 2590) PROTHROMBIN [id number] 15:30:00 Test Item Value Reference Range Interpretation Comments PROTIME (BEAKER) (test code = 13.2 seconds 11.7-14.7 759) INR (BEAKER) (test code = 370) 1.0 <=5.9 RECOMMENDED COUMADIN/WARFARIN INR THERAPY RANGESSTANDARD DOSE: 2.0 - 3.0 Includes: PROPHYLAXIS forvenous thrombosis, systemic embolization; TREATMENT for venous thrombosis and/or pulmonary embolus.HIGH RISK: Target INR is 2.5-3.5 for patients with mechanical heart valves.CBC W/PLT COUNT & AUTO DIFFERENTIAL 2017-01-27 15:19:00 Test Item Value Reference Range Interpretation Comments WHITE BLOOD CELL COUNT (BEAKER) 7.8 K/ L 4.0-10.0 (test code = 775) RED BLOOD CELL COUNT (BEAKER) 4.20 M/ L 4.00-5.00 (test code = 761) HEMOGLOBIN (BEAKER) (test code = 13.8 GM/DL 12.0-15.0 410) HEMATOCRIT (BEAKER) (test code = 41.3 % 36.0-45.0 411) MEAN CORPUSCULAR VOLUME (BEAKER) 98.3 fL 82.0-99.0 (test code = 753) MEAN CORPUSCULAR HEMOGLOBIN 33.0 pg 27.0-33.0 (BEAKER) (test code = 751) MEAN CORPUSCULAR HEMOGLOBIN CONC 33.5 GM/DL 32.0-36.0 (BEAKER) (test code = 752) RED CELL DISTRIBUTION WIDTH 11.5 % 10.3-14.2 (BEAKER) (test code = 412) PLATELET COUNT (BEAKER) (test 215 K/CU MM 150-430 code = 756) MEAN PLATELET VOLUME (BEAKER) 8.3 fL 6.5-10.5 (test code = 754) NUCLEATED RED BLOOD CELLS 0 /100 WBC 0-0 (BEAKER) (test code = 413) NEUTROPHILS RELATIVE PERCENT 55 % (BEAKER) (test code = 429) LYMPHOCYTES RELATIVE PERCENT 35 % (BEAKER) (test code = 430) MONOCYTES RELATIVE PERCENT 6 % (BEAKER) (test code = 431) EOSINOPHILS RELATIVE PERCENT 2 % (BEAKER) (test code = 432) BASOPHILS RELATIVE PERCENT 1 % (BEAKER) (test code = 437) NEUTROPHILS ABSOLUTE COUNT 4.31 K/ L 1.80-8.00 (BEAKER) (test code = 670) LYMPHOCYTES ABSOLUTE COUNT 2.75 K/ L 1.48-4.50 (BEAKER) (test code = 414) MONOCYTES ABSOLUTE COUNT (BEAKER) 0.50 K/ L 0.00-1.30 (test code = 415) EOSINOPHILS ABSOLUTE COUNT 0.16 K/ L 0.00-0.50 (BEAKER) (test code = 416) BASOPHILS ABSOLUTE COUNT (BEAKER) 0.07 K/ L 0.00-0.20 (test code = 417) [id number] 12:40:00 Test Item Value Reference Range Interpretation Comments POC-CREATININE 0.7 mg/dL 0.6-1.3 TESTED AT [facility] (BEAKER) (test 2051 [facility] code = 1859) [facility] 7703 0 POC-EGFR 84 mL/min/1.73M2 (BEAKER) (test code = 1860)
[2021-08-28 17:24] VITALS: BMI 36.0
[2021-08-28] MEDS: CEFAZOLIN/NS 1gm 1 GM/50 ML BAG IVPB SCH (17:30)
[2021-08-28] MEDS: HYDROCODONE/APAP 7.5/325 MG TAB PO PRN (20:02)
[2021-08-29] MEDS: CEFAZOLIN/NS 1gm 1 GM/50 ML BAG IVPB SCH ×2 (01:20→07:57)
[2021-08-29] MEDS: HYDROCODONE/APAP 7.5/325 MG TAB PO PRN ×2 (01:35→07:56)
[2021-08-29 04:00] LABS: Hematocrit 37.9 % (36.0-45.0)
[2021-08-29] MEDS: ENOXAPARIN 30 MG/0.3 ML SQ SCH ×2 (06:00→07:57)
--- NOTE | 2021-08-29 08:54 | P.CNS ---
Date of Consult: 08/28/21 Reason for Consult: Medical management Requesting Physician: Tiburcio Eddy Chief Complaint: Right total knee arthroplasty Allergies No Known Allergies Allergy (Verified 08/24/21 11:17) Home Medications: Amlodipine [Norvasc] 2.5 mg PO [id number] 08/24/21 Ascorbic Acid [Vitamin C] 1,000 mg PO DAILY 08/24/21 Atorvastatin Calcium [Lipitor] 10 mg PO BEDTIME 08/24/21 Carvedilol [Coreg] 25 mg PO BID 08/24/21 Cholecalciferol (Vitamin D3) [Vitamin D 1000 Iu Tab] 1,000 unit PO DAILY 08/24/21 Duloxetine HCl 60 mg PO DAILY 08/24/21 Gabapentin 300 mg PO BID 08/24/21 Irbesartan/Hydrochlorothiazide [Avalide 300-12.5 mg Tablet] 1 each PO [id number] 08/24/21 Levothyroxine [Synthroid] 75 mcg PO [id number] 08/24/21 Zolpidem Tartrate 10 mg PO BEDTIME 08/24/21 - Past Medical/Surgical History Diabetic: No -: HTn -: Hypothyroidism -: Hysterectomy -: Cholecystectomy - Family History Father Medical History: Other (see notes) Notes: Brain Hemorrhage Mother Medical History: Stroke - Social History Alcohol use: Yes CD- Drugs: No Caffeine use: Yes Place of Residence: Home Physical Examination Temp Pulse Resp BP Pulse Ox 97.1 F 82 18 137/73 95 08/29/21 08:00 08/29/21 08:00 08/29/21 08:00 08/29/21 08:00 08/29/21 08:00 Laboratory Data (last 24 hrs) 08/29/21 03:22: Hgb 12.6, Hct 37.9
[2021-08-29 11:04] VITALS: O2SAT 95
[2021-08-29 12:46] VITALS: BP 133/63; TEMP 96.7
--- NOTE | 2021-08-30 11:24 | P.DS ---
Discharge Date: 08/29/21 Disposition: ROUTINE DISCHARGE Discharge Condition: GOOD Reason for Admission: Right total knee arthroplasty Vital Signs/Physical Exam: Temp Pulse Resp BP Pulse Ox 96.7 F L 72 18 133/63 97 08/29/21 12:00 08/29/21 12:00 08/29/21 12:00 08/29/21 12:00 08/29/21 12:00 Laboratory Data at Discharge: Hgb 12.6 g/dL (12.0-15.0) 08/29/21 03:22 Hct 37.9 % (36.0-45.0) 08/29/21 03:22 PT 11.0 SECONDS (9.5-12.5) 08/24/21 11:31 INR 0.96 08/24/21 11:31 APTT 34.7 SECONDS (24.3-36.9) 08/24/21 11:31 Home Medications: Amlodipine [Norvasc*] 2.5 mg PO [id number] 08/24/21 Ascorbic Acid [Vitamin C] 1,000 mg PO DAILY 08/24/21 Atorvastatin Calcium [Lipitor*] 10 mg PO BEDTIME 08/24/21 Carvedilol [Coreg] 25 mg PO BID 08/24/21 Cholecalciferol (Vitamin D3) [Vitamin D 1000 Iu Tab*] 1,000 unit PO DAILY 08/24/21 Duloxetine HCl 60 mg PO DAILY 08/24/21 Gabapentin 300 mg PO BID 08/24/21 Irbesartan/Hydrochlorothiazide [Avalide 300-12.5 mg Tablet] 1 each PO [id number] 08/24/21 Levothyroxine [Synthroid*] 75 mcg PO [id number] 08/24/21 Zolpidem Tartrate 10 mg PO BEDTIME 08/24/21 Hydrocodone 7.5/APAP 325 [Dennison 7.5/325 mg] 1 tab PO Q6H PRN #30 tab 08/29/21 Rivaroxaban [Xarelto] 10 mg PO DAILY #20 tablet 08/29/21 New Medications: Hydrocodone 7.5/APAP 325 [Dennison 7.5/325 mg] 1 tab PO Q6H PRN #30 tab PRN Reason: Pain Rivaroxaban [Xarelto] 10 mg PO DAILY #20 tablet Physician Discharge Instructions: OK TO DC IV AND DC HOME FOLLOW-UP WITH PRIMARY CARE PROVIDER IN 1-2 WEEKS FOLLOW-UP WITH Orthopedics IN 1-2 WEEKS RETURN TO THE ER IF symptoms worsen CALL or TEXT DR. MATTHEW AT [phone] IF ANY QUESTIONS REGARDING HOSPITAL STAY. PLEASE CALL THE FLOOR AT [phone] IF ANY MEDICATION OR NURSING QUESTIONS. Diet: AHA Activity: Fall precautions Followup: Tiburcio Eddy MD [ACTIVE - CAN ADMIT] - 1-2 Weeks (call to schedule an appointment )
== END 2021-08-29 12:12 | disposition home or self-care (01) ==
LOC: OR 10:29 → 4TH 16:24
PROVIDERS: ADMIT Orthopaedic Surgery; ATTEND Orthopaedic Surgery
PROC: 0SRC069 Replacement of Right Knee Joint with Oxidized Zirconium on Polyethylene Synthetic Substitute, Cemented, Open Approach (ICD-10-PCS; principal; 2021-08-28 12:15)
DX: M17.11 Unilateral primary osteoarthritis, right knee (principal); I10 Essential (primary) hypertension; E03.9 Hypothyroidism, unspecified; Z20.822 Contact with and (suspected) exposure to COVID-19; Z90.49 Acquired absence of other specified parts of digestive tract; Z90.710 Acquired absence of both cervix and uterus; Z82.3 Family history of stroke
CPT/HCPCS: 36415; 85014; 85018; 85610; 85730; 86850; 86900; 86901; 88304; 88311; 94010; 97110; 97116; 97139; 97161; C1776; G0378; G0379; J0690; J1100; J1170; J2250; J2405; J2704; J3010; J7120; U0002

== ENCOUNTER 2024-12-13 13:55 | Emergency (ER) | payer OTHER ==
[2024-12-13] MEDS ORDERED: KETOROLAC 30 MG/ML INJ ONE (14:20)
--- NOTE | 2024-12-13 14:56 | RAD REPORT ---
EXAMINATION: LUMBAR SPINE 3 VIEWS CLINICAL INDICATION: Female, 74 years old. trauma TECHNIQUE: AP, lateral, focused lateral lumbosacral views of the lumbar spine were obtained. [id number]. COMPARISON: No prior exam. FINDINGS: For purposes of this dictation, it is assumed that there are 5 lumbar type vertebral bodies. ALIGNMENT: Grade 1 anterolisthesis of L5 on S1 BONES: Vertebral bodies are normal in height. No aggressive osseous lesions. DISCS: Moderate disc height loss at L4-5 and L2-3. Mild endplate spurring. Prominent facet degenerati ve changes are present at L4-5 and L5-S1. SOFT TISSUE: No soft tissue abnormalities. IMPRESSION: No acute lumbar spine abnormality. Moderate degenerative disc disease.
--- NOTE | 2024-12-13 15:14 | EDPHYS ---
Physician Documentation [facility] Name: Celeste Rojas Age: 74 yrs Sex: Female : 1950 Arrival Date: 12/13/2024 Time: 13:55 Bed 9 Private MD: ED Physician Maurilio Hudson HPI: 12/13 14:20 This 74 yrs old Female presents to ER via Ambulatory with complaints of Low Back Pain. sp3 14:20 . sp3 14:25 74-year-old female with history of hypertension and hyperlipidemia presents with low sp3 back pain after injury that occurred approximately 1 week ago where she was holding her small dog and another dog attacked him pushing both of them to the ground, killing her small dog and causing patient to land on her lower back. No head injury or other extremity injury reported. Incident occurred 1 week ago. Patient is been taking [id number] acetaminophen which has not significantly improved her symptoms and therefore she seeks further intervention here. She is able to ambulate though it is painful. She is not on any antiplatelet or anticoagulant agents.. Historical: - Allergies: 14:05 No Known Allergies; ll1 - PMHx: 14:05 Hypertension; Hypothyroidism; Hypercholesterolemia; ll1 - Immunization history:: Adult Immunizations up to date. - Infectious Disease History:: Denies. - Social history:: Smoking status: Patient denies any tobacco usage or history of. ROS: 14:26 Constitutional: Negative for fever, chills, and weight loss, Eyes: Negative for injury, sp3 pain, redness, and discharge, Neck: Negative for injury, pain, and swelling, Cardiovascular: Negative for chest pain, palpitations, and edema, Respiratory: Negative for shortness of breath, cough, wheezing, and pleuritic chest pain, Abdomen/GI: Negative for abdominal pain, nausea, vomiting, diarrhea, and constipation, Skin: Negative for injury, rash, and discoloration, Neuro: Negative for headache, weakness, numbness, tingling, and seizure, Psych: Negative for depression, anxiety, suicide ideation, homicidal ideation, and hallucinations, Allergy/Immunology: Negative for hives, rash, and allergies, Endocrine: Negative for neck swelling, polydipsia, polyuria, polyphagia, and marked weight changes, Hematologic/Lymphatic: Negative for swollen nodes, abnormal bleeding, and unusual bruising, 14:26 All other systems are negative, Exam: 14:27 Constitutional: This is a well developed, well nourished patient who is awake, alert, sp3 and in no acute distress. Head/Face: Normocephalic, atraumatic. Eyes: Pupils equal round and reactive to light, extra-ocular motions intact. Lids and lashes normal. Conjunctiva and sclera are non-icteric and not injected. Cornea within normal limits. Periorbital areas with no swelling, redness, or edema. Neck: Trachea midline, no thyromegaly or masses palpated, and no cervical lymphadenopathy. Supple, full range of motion without nuchal rigidity, or vertebral point tenderness. No Meningismus. Chest/axilla: Normal chest wall appearance and motion. Nontender with no deformity. No lesions are appreciated. Cardiovascular: Regular rate and rhythm with a normal S1 and S2. No gallops, murmurs, or rubs. Normal PMI, no JVD. No pulse deficits. Respiratory: Lungs have equal breath sounds bilaterally, clear to auscultation and percussion. No rales, rhonchi or wheezes noted. No increased work of breathing, no retractions or nasal flaring. Abdomen/GI: Soft, non-tender, with normal bowel sounds. No distension or tympany. No guarding or rebound. No evidence of tenderness throughout. Skin: Warm, dry with normal turgor. Normal color with no rashes, no lesions, and no evidence of cellulitis. MS/ Extremity: Pulses equal, no cyanosis. Neurovascular intact. Full, normal range of motion. Neuro: Awake and alert, GCS 15, oriented to person, place, time, and situation. Cranial nerves II-XII grossly intact. Motor strength 5/5 in all extremities. Sensory grossly intact. Cerebellar exam normal. Normal gait. Psych: Awake, alert, with orientation to person, place and time. Behavior, mood, and affect are within normal limits. 14:27 Back: Pain to palpation of the lower back musculature. No significant bony pain or step-offs noted., Vital Signs: 14:05 BP 138 / 90; Pulse 67; Resp 16; Pulse Ox 100% ; Weight 79.38 kg; Height 5 ft. 7 in. ; ll1 14:05 Body Mass Index 27.41 (79.38 kg, 170.18 cm) ll1 MDM: 14:02 Medical Screening Exam initiated sp3 14:27 Data reviewed: vital signs, nurses notes, radiologic studies. ED course: Low back sp3 contusion versus muscle strain versus fracture. Will obtain x-rays of the lumbosacral spine and administer ketorolac IM. Discharged on muscle relaxer and tramadol if x-rays negative.. 15:12 ED course: X-rays demonstrate no significant acute traumatic injury. We will discharge sp3 patient on tramadol and muscle relaxer.. 12/13 14:19 Order name: Lumbar Spine (3 Views) XRAY; Complete Time: 15:07 sp3 Administered Medications: 14:23 Drug: Ketorolac IM 15 mg IM once Route: IM; Site: right deltoid; ph 15:27 Follow up: Response: No adverse reaction; Pain is decreased ph Disposition Summary: 12/13/24 15:13 Discharge Ordered Notes: Location: Home sp3 Condition: Stable sp3 Diagnosis - Low back contusion sp3 Followup: sp3 - With: Private Physician - When: Upon discharge from the Emergency Department - Reason: Recheck today's complaints, Continuance of care Discharge Instructions: - Discharge Summary Sheet sp3 - Lumbar Strain sp3 Forms: - Medication Reconciliation Form sp3 - Antibiotic Education sp3 - Prescription Opioid Use sp3 - Patient Portal Instructions sp3 - Leadership Thank You Letter sp3 Prescriptions: - Tramadol 50 mg Oral Tablet - take 1 tablet ORAL route every 8 hours as needed; 12 tablet; Refills: 0, sp3 Product Selection Permitted - Cyclobenzaprine 5 mg Oral Tablet - take 1 tablet ORAL route 3 times per day As needed; 15 tablet; Refills: 0, sp3 Product Selection Permitted Signatures: Dispatcher [employer] Lidia Holden RN RN Mikaela Traore RN RN ll1 Maurilio Hudson MD MD sp3
--- NOTE | 2024-12-13 15:14 | ER ---
Nurse's Notes [facility] Name: Celeste Rojas Age: 74 yrs Sex: Female : 1950 Arrival Date: 12/13/2024 Time: 13:55 Bed 9 Private MD: Diagnosis: Low back contusion Presentation: 12/13 14:05 Chief complaint: Patient states: Knocked over during dog fight last Friday. Low back ll1 pain since, got more severe yesterday. Coronavirus screen: Client denies travel out of the [place] in the last 14 days. At this time, the client does not indicate any symptoms associated with coronavirus-19. Ebola Screen: Patient denies travel to an Ebola-affected area in the 21 days before illness onset. Initial Sepsis Screen: Does the patient meet any 2 criteria? No. Patient's initial sepsis screen is negative. Does the patient have a suspected source of infection? No. Patient's initial sepsis screen is negative. Risk Assessment: Do you want to hurt yourself or someone else? Patient reports no desire to harm self or others. Onset of symptoms was December 04, 2024. 14:05 Method Of Arrival: Ambulatory ll1 14:05 Acuity: JESSICA 3 ll1 Triage Assessment: 14:05 General: Appears uncomfortable, Behavior is calm, cooperative, appropriate for age. ss Pain: Complains of pain in back Quality of pain is described as aching. Musculoskeletal: Reports pain in low back. Historical: - Allergies: 14:05 No Known Allergies; ll1 - PMHx: 14:05 Hypertension; Hypothyroidism; Hypercholesterolemia; ll1 - Immunization history:: Adult Immunizations up to date. - Infectious Disease History:: Denies. - Social history:: Smoking status: Patient denies any tobacco usage or history of. Screenin:18 [facility] ED Fall Risk Assessment (Adult) History of falling in the last 3 months, ph including since admission No falls in past 3 months (0 pts) Confusion or Disorientation No (0 pts) Intoxicated or Sedated No (0 pts) Impaired Gait No (0 pts) Mobility Assist Device Used No (0 pt) Altered Elimination No (0 pt) Score/Fall Risk Level 0 - 2 = Low Risk Oriented to surroundings, Maintained a safe environment, Hourly rounding (assess needs \T\ fall precautionary measures) done. Abuse screen: Denies threats or abuse. Denies injuries from another. Nutritional screening: No deficits noted. Tuberculosis screening: No symptoms or risk factors identified. Assessment: 14:18 General: Appears in no apparent distress. Behavior is calm, cooperative. Pain: ph Complains of pain in low back area. Neuro: Level of Consciousness is awake, alert, obeys commands, Oriented to person, place, time, situation. Cardiovascular: Capillary refill < 3 seconds in bilateral fingers Patient's skin is warm and dry. Respiratory: Airway is patent Respiratory effort is even, unlabored, Respiratory pattern is regular, symmetrical. Derm: Skin is pink, warm \T\ dry. Musculoskeletal: Circulation, motion, and sensation intact. Range of motion: intact in all extremities. Vital Signs: 14:05 BP 138 / 90; Pulse 67; Resp 16; Pulse Ox 100% ; Weight 79.38 kg; Height 5 ft. 7 in. ; ll1 14:05 Body Mass Index 27.41 (79.38 kg, 170.18 cm) ll1 ED Course: 13:59 Patient arrived in ED. im 14:01 Maurilio Hudson MD is Attending Physician. sp3 14:07 Triage completed. ll1 14:07 Arm band placed on Patient placed in an exam room, on a stretcher. ll1 14:11 Lidia Jameson, RN is Primary Nurse. ph 14:19 Patient has correct armband on for positive identification. Bed in low position. Call ph light in reach. Side rails up X 1. Pulse ox on. NIBP on. Door closed. Noise minimized. Warm blanket given. Pillow given. 14:46 Lumbar Spine (3 Views) XRAY In Process Unspecified. EDMS 15:26 No provider procedures requiring assistance completed. Patient did not have IV access ph during this emergency room visit. Administered Medications: 14:23 Drug: Ketorolac IM 15 mg IM once Route: IM; Site: right deltoid; ph 15:27 Follow up: Response: No adverse reaction; Pain is decreased ph Medication: 14:19 VIS not applicable for this client. ph Outcome: 15:13 Discharge ordered by . sp3 15:26 Discharged to home ambulatory, ph 15:26 Condition: good 15:26 Discharge instructions given to patient, Instructed on discharge instructions, follow up and referral plans. medication usage, Demonstrated understanding of instructions, follow-up care, medications, 15:27 Patient left the ED. ph Signatures: Dispatcher [employer] EDMS Michaela Gary RN RN ss Lidia Jameson RN RN ph Lewis, Lynsay, RN RN ll1 Maurilio Hudson MD MD sp3 Angle Guillen Corrections: (The following items were deleted from the chart) 14:15 14:05 Chief complaint: Patient states: Knocked over during dog fight last Friday. Low ll1 back pain since, got more sever yesterday. ll1
[2024-12-13 15:33] VITALS: BP 138/90; O2SAT 100
== END 2024-12-13 15:27 | disposition home or self-care (01) ==
LOC: ER 13:55
DX: S30.0XXA Contusion of lower back and pelvis, initial encounter (principal); W18.30XA Fall on same level, unspecified, initial encounter
CPT/HCPCS: 72100; 96372; 99284

== ENCOUNTER 2025-07-08 09:26 | Emergency (ER) | payer OTHER ==
--- NOTE | 2025-07-08 10:13 | RAD REPORT ---
EXAMINATION: XR RIGHT FOOT CLINICAL INDICATION: Female, 74 years old. trauma 3 days ago;Pain TECHNIQUE: Multiple views of the right foot were obtained. COMPARISON: No prior exam. FINDINGS: Lucency is seen involving the base of the fifth metatarsal compatible with fracture. Mild a djacent soft tissue swelling. No additional fracture seen. 2 screws are present in the fifth metatarsal distally. Tiny calcaneal spurs.
[2025-07-08] MEDS ORDERED: IBUPROFEN 400 MG TAB ONE (10:17)
--- NOTE | 2025-07-08 10:24 | ER ---
Nurse's Notes [facility] Name: Celeste Rojas Age: 74 yrs Sex: Female : 1950 Arrival Date: 07/08/2025 Time: 09:26 Bed 11 Private MD: Diagnosis: Foot fracture;Foot fracture, right fifth metatarsal base fracture Presentation: 07/08 09:38 Chief complaint: Patient states: R lateral foot pain that began 1.5 weeks ago after ss getting it stuck under a senior talent acquisition specialist. No obvious injury noted. Coronavirus screen: Client denies travel out of the [place] in the last 14 days. Ebola Screen: Patient denies exposure to infectious person. Patient denies travel to an Ebola-affected area in the 21 days before illness onset. Initial Sepsis Screen: Does the patient meet any 2 criteria? No. Patient's initial sepsis screen is negative. Does the patient have a suspected source of infection? No. Patient's initial sepsis screen is negative. Risk Assessment: Do you want to hurt yourself or someone else? Patient reports no desire to harm self or others. Onset of symptoms was June 28, 2025. 09:38 Method Of Arrival: Ambulatory ss 09:38 Acuity: JESSICA 4 ss Historical: - Allergies: 09:40 No Known Allergies; ss - PMHx: 09:40 Hypercholesterolemia; Hypertension; Hypothyroidism; ss - Immunization history:: Adult Immunizations up to date. - Infectious Disease History:: Denies. - Social history:: Smoking status: Patient denies any tobacco usage or history of. Vital Signs: 09:38 Resp 16; Weight 90.72 kg; Height 5 ft. 7 in. ; Pain 5/10; ss 10:13 BP 153 / 86; Pulse 68; Resp 16; Temp 98.2(O); Pulse Ox 95% on R/A; Pain 8/10; ss 09:38 Body Mass Index 31.32 (90.72 kg, 170.18 cm) ss 09:38 Pain Scale: Adult ss 10:13 Pain Scale: Adult ss ED Course: 09:31 Patient arrived in ED. al6 09:33 Maurilio Hudson MD is Attending Physician. sp3 09:40 Triage completed. ss 09:40 Arm band placed on right wrist. ss 10:11 Foot Right 3 View XRAY In Process Unspecified. EDMS 10:23 Landen Bowman MD is Referral Physician. sp3 10:48 Michaela Gary, RN is Primary Nurse. ss 11:48 No provider procedures requiring assistance completed. Patient did not have IV access ss during this emergency room visit. Administered Medications: 10:49 Drug: Ibuprofen PO 800 mg PO once Route: PO; ss 11:48 Follow up: Response: No adverse reaction ss Outcome: 10:23 Discharge ordered by . sp3 11:48 Discharged to home ambulatory, ss 11:48 Condition: good 11:48 Discharge instructions given to Instructed on discharge instructions, follow up and referral plans. medication usage, Demonstrated understanding of instructions, follow-up care, medications, Prescriptions given X 1, 11:49 Patient left the ED. ss Signatures: Dispatcher [employer] EDKY Michaela Gary, BRIDGET RN Maurilio Husdon MD MD sp3 Angeline Lee al6
--- NOTE | 2025-07-08 10:24 | EDPHYS ---
Physician Documentation [facility] Name: Celeste Rojas Age: 74 yrs Sex: Female : 1950 Arrival Date: 07/08/2025 Time: 09:26 Bed 11 Private MD: ED Physician Maurilio Hudson HPI: 07/08 09:55 This 74 yrs old Female presents to ER via Ambulatory with complaints of Right Foot sp3 Injury. 09:55 74-year-old female with history of hyperlipidemia, hypertension presents with right sp3 lateral foot pain after flipping a riding lawnmower onto her landing on her right foot 2 days ago. Patient states that the pain and swelling have progressively gotten worse. She is able to ambulate on it however it hurts. No other injury reported. She denies any headache, neck pain, other extremity pain, chest pain, back pain, abdominal pain or any other traumatic symptoms on ROS at this time.. Historical: - Allergies: 09:40 No Known Allergies; ss - PMHx: 09:40 Hypercholesterolemia; Hypertension; Hypothyroidism; ss - Immunization history:: Adult Immunizations up to date. - Infectious Disease History:: Denies. - Social history:: Smoking status: Patient denies any tobacco usage or history of. ROS: 09:56 Constitutional: Negative for fever, chills, and weight loss, Eyes: Negative for injury, sp3 pain, redness, and discharge, Neck: Negative for injury, pain, and swelling, Cardiovascular: Negative for chest pain, palpitations, and edema, Respiratory: Negative for shortness of breath, cough, wheezing, and pleuritic chest pain, Abdomen/GI: Negative for abdominal pain, nausea, vomiting, diarrhea, and constipation, Back: Negative for injury and pain, Skin: Negative for injury, rash, and discoloration, Neuro: Negative for headache, weakness, numbness, tingling, and seizure, Psych: Negative for depression, anxiety, suicide ideation, homicidal ideation, and hallucinations, Allergy/Immunology: Negative for hives, rash, and allergies, Endocrine: Negative for neck swelling, polydipsia, polyuria, polyphagia, and marked weight changes, 09:56 All other systems are negative, Exam: 09:56 Constitutional: This is a well developed, well nourished patient who is awake, alert, sp3 and in no acute distress. Head/Face: Normocephalic, atraumatic. Skin: Warm, dry with normal turgor. Normal color with no rashes, no lesions, and no evidence of cellulitis. 09:56 Musculoskeletal/extremity: Right lateral foot pain full to palpation and swollen. No pain over the base of the fifth metatarsal. No pain on medial or lateral malleoli. Capillary refill is normal.. Vital Signs: 09:38 Resp 16; Weight 90.72 kg; Height 5 ft. 7 in. ; Pain 5/10; ss 10:13 BP 153 / 86; Pulse 68; Resp 16; Temp 98.2(O); Pulse Ox 95% on R/A; Pain 8/10; ss 09:38 Body Mass Index 31.32 (90.72 kg, 170.18 cm) ss 09:38 Pain Scale: Adult ss 10:13 Pain Scale: Adult ss MDM: 09:38 Medical Screening Exam initiated sp3 09:57 Data reviewed: vital signs, nurses notes, radiologic studies. ED course: 74-year-old sp3 female with right foot pain after injury. Differential diagnosis includes soft tissue injury versus fracture. Not suspecting vascular abnormality. X-ray pending. Motrin p.o. for pain control as patient is driving. Disposition pending x-ray results.. 10:22 ED course: Lucency seen at the base of the fifth metatarsal concerning for fracture. sp3 Will place an Ortho boot and follow-up with orthopedics. Crutches as well. Tramadol for pain control.. 07/08 09:48 Order name: Foot Right 3 View XRAY; Complete Time: 10:19 sp3 07/08 10:22 Order name: Orthopedic shoe; Complete Time: 11:48 sp3 Administered Medications: 10:49 Drug: Ibuprofen PO 800 mg PO once Route: PO; ss 11:48 Follow up: Response: No adverse reaction ss Disposition Summary: 07/08/25 10:23 Discharge Ordered Notes: Location: Home sp3 Condition: Stable sp3 Diagnosis - Foot fracture sp3 - Foot fracture, right fifth metatarsal base fracture sp3 Followup: sp3 - With: Landen Bowman MD - When: Upon discharge from the Emergency Department - Reason: Continuance of care Discharge Instructions: - Discharge Summary Sheet sp3 - Crutch Use, Adult sp3 - Metatarsal Fracture sp3 Forms: - Medication Reconciliation Form sp3 - Antibiotic Education sp3 - Prescription Opioid Use sp3 - Patient Portal Instructions sp3 - Leadership Thank You Letter sp3 Prescriptions: - Tramadol 50 mg Oral Tablet - take 1 tablet ORAL route every 8 hours as needed; 12 tablet; Refills: 0, sp3 Product Selection Permitted Signatures: Dispatcher [employer] EDKS Michaela Gary RN RN ss Maurilio Hudson MD MD sp3 Corrections: (The following items were deleted from the chart) 09:49 09:49 Foot Right 3 View+RAD.RAD.BRZ ordered. EDKS EDMS 11:48 10:22 Crutches ordered. sp3 ss
[2025-07-08 13:10] VITALS: BP 153/86; TEMP 98.2; O2SAT 95
== END 2025-07-08 11:49 | disposition home or self-care (01) ==
LOC: ER 09:26
DX: S92.351A Displaced fracture of fifth metatarsal bone, right foot, initial encounter for closed fracture (principal)
CPT/HCPCS: 99283